=== PATIENT | female | born 1995 | race Caucasian/White ===

== ENCOUNTER 2017-12-21 19:10 | Emergency (ER) | payer MEDICAID, SELFPAY ==
[2017-12-21 19:18] VITALS: BP 133/71; PULSE 83; RESP 16; TEMP 36.7; O2SAT 99
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
[2017-12-21] MEDS: Normal Saline 1,000 ML 1000 ML IV (19:38)
[2017-12-21] MEDS: Ondansetron 4 MG/2 ML VIAL IVP (19:39)
[2017-12-21 19:40] LABS: Abs Immature Grans 0.04 k/cumm (0.0-0.09); Absolute Basophil Count 0.02 k/cumm (0.0-0.2); Absolute Eosinophil Count 0.07 k/cumm (0.0-0.7); Absolute Monocyte Count 0.77 k/cumm (0.11-0.7); Basophils % 0.2; Eosinophils % 0.6; HCT 34.3 % (36.0-46.0); HGB 11.6 g/dL (12.0-15.5); Immature Grans % 0.3; Lymphocytes % 18.3; Mean Corp. HGB Concentration 33.8 g/dL (32.0-36.0); Mean Corpuscular Hemoglobin 27.3 pg (27.0-33.0); Mean Corpuscular Volume 80.7 fL (80-95); Mean Platelet Volume 10.4 fL (8.0-11.0); Monocytes % 6.4; Neutrophils % 74.2; Platelet Count 272 x1000/uL (130-400); RBC 4.25 m/cumm (4.00-5.20); RBC Distribution Width 13.4 % (11.7-14.6); White Blood Cell Count 12.04 k/cumm (4.4-10.8)
[2017-12-21 19:46] LABS: Absolute Neutrophil Count 8.93 k/cumm (1.2-6.7)
[2017-12-21 19:59] LABS: ALT 19 U/L (12-78); AST 30 U/L (15-37); Alkaline Phosphatase 110 U/L (46-116); Anion Gap 11.6 mmol/L (3-11); BUN 5 mg/dL (7-18); Bilirubin, Total 0.2 mg/dL (0.2-1.0); CO2 22.4 mmol/L (21.0-32.0); CREATININE 0.41 mg/dL (0.55-1.02); Calcium 8.7 mg/dL (8.5-10.1); Chloride 102 mmol/L (98-107); Glucose 90 mg/dL (70-100); Magnesium 2.1 mg/dL (1.8-2.4); Potassium 3.5 mmol/L (3.5-5.1); Sodium 136 mmol/L (136-145); Total Protein 7.1 g/dL (6.4-8.2)
[2017-12-21 20:06] LABS: Bilirubin Small (Negative); Blood Negative (Negative); Clarity Cloudy; Glucose Negative (Negative); Ketones >=160 mg/dL (Negative); Leukocyte Esterase Small (Negative); Nitrite Positive (Negative); Specific Gravity >= 1.030 (1.005-1.025); Urobilinogen 0.2 EU/dL (Up TO 0.2)
[2017-12-21 20:17] LABS: Bacteria Moderate HPF (Negative); C & S Indicated? Yes; Casts Negative LPF (Negative); Crystals Negative HPF (Negative); Epithelial Cells Few HPF (Negative); Mucus Moderate (Negative); WBC 20-50 HPF (0-5)
[2017-12-21] MEDS: Nitrofurantoin Macrocrystal 50 MG CAP PO (21:19)
[2017-12-21 21:21] VITALS: BP 106/73; PULSE 72; RESP 18; TEMP 36.7; O2SAT 98
== END 2017-12-21 21:21 | disposition home or self-care (01) ==
PROVIDERS: Emergency Provider Emergency Medicine; PCP Family Medicine
DX: O23.42 Unspecified infection of urinary tract in pregnancy, second trimester (principal); O99.332 Smoking (tobacco) complicating pregnancy, second trimester; Z3A.17 17 weeks gestation of pregnancy; T58.94XA Toxic effect of carbon monoxide from unspecified source, undetermined, initial encounter
CPT/HCPCS: 80053; 87077; 96361; 96374; 99284; 81003; 81015; 83735; 85025; 87086; 87186; J2405

== ENCOUNTER 2018-02-14 19:55 | Observation (INO) | payer MEDICAID, SELFPAY ==
--- NOTE | 2018-02-14 20:32 | W.ED.GENAD ---
Discharge Plan Disposition Patient Disposition: [facility] INPATIENT Condition: Serious Discharge Details Clinical Impression: Abdominal pain affecting Admit Date/Time: 02/14/18 20:36 Admit Provider: Mickie Hernandez Attending Provider: Digna Jolley Primary Care Provider: Polo Ramírez ED Provider: Mickie Hernandez Discharge Data Discharge Date/Time-TO BE ENTERED AT DEPARTURE: 02/14/18 20:05 Medical Decision Making Patient presents today with chief complaint of abdominal pain. She is 26 weeks gestation. Reports that today she began having severe cramping that has been intermittent. States that she is also having pain that radiates into the back. Patient is not typically seen here for her obstetrical care. Patient reports that she has noted movement but not as much as she typically does. Patient came on to the Tracker and was noted to be 26 weeks gestation, immediately asked our police department secretary staff to page Dr. Jolley who promptly called me back and advised the patient should immediately go to the birthing center for evaluation. Discussed this plan with patient who is quite excited to be able to go to the birthing center. Reports this is where she would have gone if she had been at home in the care of her typical [employer]. Was replaced with the patient be admitted to birthing center for observation. HPI General Mode of arrival: ambulatory. Date/Time Provider Initiated Documentation: 02/14/18 20:04. Limitations to Documentation: no limitations. Information obtained by: patient and family. History of Present Illness 22 year old F presents to the emergency department with the chief complaint of abdominal pain, described as moderate, Quality is described as other (cramping), and is localized to the abdomen. Patient reports radiation to back. Patient started experiencing this day(s) (1) and it has been intermittent. No relieving factors improve symptom(s), No exacerbating factors reported . Patient notes no other symptoms. and other (denies vaginal discharge); denies chest pain, cough, diaphoresis, fever/chills, headaches, nausea/vomiting, rash and shortness of breath. Patient did receive the following treatments prior to arrival, none Related Data Home Medications Medication Instructions Recorded Confirmed PNV cmb#95-ferrous fumarate-FA 1 tab PO DAILY 10/08/17 11/12/17 [ Formula] nitrofurantoin macrocrystal 50 mg PO QID #28 capsule 12/21/17 Previous Rx's Medication Instructions Recorded nitrofurantoin macrocrystal 50 mg PO QID #28 capsule 12/21/17 Allergies Allergy/AdvReac Type Severity Reaction Status Date / Time cefaclor Allergy Unknown Verified 11/12/17 22:03 Cephalosporins Allergy Unknown Verified 11/12/17 22:03 fluoxetine [From Prozac] AdvReac Severe Psychosis Unverified 11/12/17 22:05 sertraline [From Zoloft] AdvReac Severe suicidal, Unverified 11/12/17 22:05 homasidal lamotrigine AdvReac Intermediate blisters Unverified 11/12/17 22:05 on throat and tongue amphetamine sulfate AdvReac Tachycardia Verified 11/12/17 22:03 [From Adderall] atomoxetine HCl AdvReac Tachycardia Verified 11/12/17 22:03 [From Strattera] dextroamphetamine AdvReac Tachycardia Verified 11/12/17 22:03 [From Adderall] hydromorphone AdvReac Verified 11/12/17 22:03 Review of Systems Constitutional Reports as per HPI, Denies chills and Denies fever(s) Cardiovascular Denies chest pain and Denies dyspnea Respiratory Denies cough and Denies dyspnea Gastrointestinal Reports as per HPI, Reports abdominal pain, Denies change in bowel habits, Reports nausea and Reports vomiting (Patient endorses morning sickness that has persisted, no change in this today) Genitourinary Reports as per HPI, Denies abnormal vaginal bleeding (denies vaginal bleeding), Denies hematuria, Denies urinary frequency, Denies difficulty voiding, Denies genital pruritis, Denies dyspareunia, Denies dysuria, Denies pelvic pain and Denies flank pain Musculoskeletal Reports as per HPI and Reports back pain (abdominal pain radiates into back) Integumentary/Breasts Denies rash [facility] Social History Smoking/Tobacco Use Status: Current every day Exam Const General: cooperative, healthy appearing, comfortable, no acute distress, well developed and well groomed Nutritional Appearance: well nourished Orientation: alert and awake Resp Effort & Inspection: normal respiratory effort, able to speak in complete sentences and no respiratory distress GI Inspection: abnormal to inspection (abdomen apperas consistent with history of gestational age) Skin General skin exam: no rashes or lesions noted Neuro General: alert and awake Cognition: normal cognition Speech: speech normal Gait: normal gait Psych Appearance: grossly normal Mental Status: mental status grossly normal Speech and Movement: speech and movement normal
--- NOTE | 2018-02-14 21:18 | ED.GENADUL_ITS ---
Discharge Plan Disposition Patient Disposition: [facility] INPATIENT Condition: Serious Discharge Details Clinical Impression: Abdominal pain affecting Admit Date/Time: 02/14/18 20:36 Admit Provider: Mickie Hernandez Attending Provider: Digna Jolley Primary Care Provider: Polo Ramírez ED Provider: Mickie Hernandez Discharge Data Discharge Date/Time-TO BE ENTERED AT DEPARTURE: 02/14/18 20:05 Medical Decision Making Patient presents today with chief complaint of abdominal pain. She is 26 weeks gestation. Reports that today she began having severe cramping that has been intermittent. States that she is also having pain that radiates into the back. Patient is not typically seen here for her obstetrical care. Patient reports that she has noted movement but not as much as she typically does. Patient came on to the Tracker and was noted to be 26 weeks gestation, immediately asked our medical office secretary staff to page Dr. Jolley who promptly called me back and advised the patient should immediately go to the birthing center for evaluation. Discussed this plan with patient who is quite excited to be able to go to the birthing center. Reports this is where she would have gone if she had been at home in the care of her typical [employer] AGENT. Was replaced with the patient be admitted to birthing center for observation. HPI General Mode of arrival: ambulatory . Date/Time Provider Initiated Documentation: 02/14/18 20:04 . Limitations to Documentation: no limitations . Information obtained by: patient and family . History of Present Illness 22 year old F presents to the emergency department with the chief complaint of abdominal pain, described as moderate, Quality is described as other ( cramping), and is localized to the abdomen. Patient reports radiation to back. Patient started experiencing this day(s) (1) and it has been intermittent. No relieving factors improve symptom(s), No exacerbating factors reported . Patient notes no other symptoms. and other (denies vaginal discharge); denies chest pain, cough, diaphoresis, fever/chills, headaches, nausea/vomiting, rash and shortness of breath. Patient did receive the following treatments prior to arrival, none Related Data Home Medications Medication Instructions Recorded Confirmed PNV cmb#95-ferrous fumarate-FA 1 tab PO DAILY 10/08/17 11/12/17 [ Formula] nitrofurantoin macrocrystal 50 mg PO QID #28 capsule 12/21/17 Previous Rx's Medication Instructions Recorded nitrofurantoin macrocrystal 50 mg PO QID #28 capsule 12/21/17 Allergies Allergy/AdvReac Type Severity Reaction Status Date / Time cefaclor Allergy Unknown Verified 11/12/17 22:03 Cephalosporins Allergy Unknown Verified 11/12/17 22:03 fluoxetine [From Prozac] AdvReac Severe Psychosis Unverified 11/12/17 22:05 sertraline [From Zoloft] AdvReac Severe suicidal, Unverified 11/12/17 22:05 homasidal lamotrigine AdvReac Intermediate blisters Unverified 11/12/17 22:05 on throat and tongue amphetamine sulfate AdvReac Tachycardia Verified 11/12/17 22:03 [From Adderall] atomoxetine HCl AdvReac Tachycardia Verified 11/12/17 22:03 [From Strattera] dextroamphetamine AdvReac Tachycardia Verified 11/12/17 22:03 [From Adderall] hydromorphone AdvReac Verified 11/12/17 22:03 Review of Systems Constitutional Reports as per HPI, Denies chills and Denies fever(s) Cardiovascular Denies chest pain and Denies dyspnea Respiratory Denies cough and Denies dyspnea Gastrointestinal Reports as per HPI, Reports abdominal pain, Denies change in bowel habits, Reports nausea and Reports vomiting (Patient endorses morning sickness that has persisted, no change in this today) Genitourinary Reports as per HPI, Denies abnormal vaginal bleeding (denies vaginal bleeding), Denies hematuria, Denies urinary frequency, Denies difficulty voiding, Denies genital pruritis, Denies dyspareunia, Denies dysuria, Denies pelvic pain and Denies flank pain Musculoskeletal Reports as per HPI and Reports back pain (abdominal pain radiates into back) Integumentary/Breasts Denies rash [facility] Social History Smoking/Tobacco Use Status: Current every day Exam Const General: cooperative, healthy appearing, comfortable, no acute distress, well developed and well groomed Nutritional Appearance: well nourished Orientation: alert and awake Resp Effort & Inspection: normal respiratory effort, able to speak in complete sentences and no respiratory distress GI Inspection: abnormal to inspection (abdomen apperas consistent with history of gestational age) Skin General skin exam: no rashes or lesions noted Neuro General: alert and awake Cognition: normal cognition Speech: speech normal Gait: normal gait Psych Appearance: grossly normal Mental Status: mental status grossly normal Speech and Movement: speech and movement normal
[2018-02-14 21:57] LABS: Bilirubin Negative (Negative); Blood Negative (Negative); Clarity Clear; Glucose Negative (Negative); Ketones Trace mg/dL (Negative); Leukocyte Esterase Negative (Negative); Nitrite Negative (Negative); Specific Gravity 1.025 (1.005-1.025); Urobilinogen 0.2 EU/dL (Up TO 0.2)
[2018-02-14 22:07] LABS: Bacteria Few HPF (Negative); Casts Negative LPF (Negative); Crystals Negative HPF (Negative); Epithelial Cells Many HPF (Negative); Mucus Moderate (Negative); RBC Negative (0-2)
[2018-02-14 22:08] LABS: C & S Indicated? No/Sq. Contamination
[2018-02-14 22:15] LABS: Fetal Fibronectin Positive (Negative)
== END 2018-02-14 22:00 | disposition home or self-care (01) ==
LOC: ER 20:09 → OBS 21:28
PROVIDERS: Admitting Provider Obstetrics & Gynecology Gynecology; Emergency Provider Physician Assistant; PCP Family Medicine; Visit Provider Obstetrics & Gynecology Gynecology
DX: O60.02 Preterm labor without delivery, second trimester (principal); Z3A.26 26 weeks gestation of pregnancy; Z87.440 Personal history of urinary (tract) infections
CPT/HCPCS: 99285; 81003; 81015; 82731; 99283; G0378

== ENCOUNTER 2018-03-18 07:44 | Outpatient (RCR) | payer MEDICAID, SELFPAY ==
--- NOTE | 2018-03-18 07:45 | COCO.CNN ---
Primary Reason for Visit Housing (housing support) Referral to Care Coordination Referral to Care Coordination: Yes Type: Other ([facility]) Referral to Services: Yes Care Plan - Plan of Care Assessment/Background: Pavel came into the office because she is and homeless. Currently she has no income. She does have a place to stay temporarly. I explaned to her the process of how housing works in our community. When she is able to sign up for reach up she should. I also explained her the agencies who could help her job search now. I referred her to [facility] to get on the homeless list for housing so when she gets income she can apply to [facility] and her status will already be homeless in the state system. Plan of Care: if she needs any more support [facility] Self Management Plan Complete?: Yes (action plan) At this Visit: [employer] (done)
--- NOTE | 2018-03-18 07:56 | PDOC.CNN_ITS ---
Primary Reason for Visit Housing (housing support) Referral to Care Coordination Referral to Care Coordination: Yes Type: Other ([facility] [place] Referral to Services: Yes Care Plan - Plan of Care Assessment/Background: Pavel came into the office because she is and homeless. Currently she has no income. She does have a place to stay temporarly. I explaned to her the process of how housing works in our community. When she is able to sign up for reach up she should. I also explained her the agencies who could help her job search now. I referred her to [facility] to get on the homeless list for housing so when she gets income she can apply to [facility] and her status will already be homeless in the state system. Plan of Care: if she needs any more support [facility] Self Management Plan Complete?: Yes (action plan) At this Visit: [employer] (done)
== END 2018-04-15 23:59 | disposition home or self-care (01) ==
LOC: COCO 07:44
PROVIDERS: PCP Family Medicine; Visit Provider Family Medicine
DX: R69 Illness, unspecified (principal)

== ENCOUNTER 2018-03-23 20:09 | Observation (INO) | payer MEDICAID, SELFPAY ==
[2018-03-23 20:13] VITALS: BP 122/85; PULSE 83; RESP 22; TEMP 37; O2SAT 96
--- NOTE | 2018-03-23 20:35 | W.ED.GENAD ---
Discharge Plan Disposition Patient Disposition: [facility] INPATIENT Condition: Stable Discharge Details Chief Complaint: [facility] Clinical Impression: Third trimester at less than 36 weeks Reason For Visit: THIRD TRIMESTER WITH CONTRACTIONS Admit Date/Time: 03/23/18 20:38 Admit Provider: Digna Jolley Attending Provider: Digna Jolley Primary Care Provider: Polo Ramírez ED Provider: Michel Suarez Medical Decision Making heart tones found to be 140-150. Patient's vitals are normal. Patient discussed with OB on-call. Patient accepted for admission to labor and delivery for monitoring. Urinalysis sent from here. Patient taken to L&D by nurse. HPI General Mode of arrival: ambulatory. Date/Time Provider Initiated Documentation: 03/23/18 20:35. Limitations to Documentation: no limitations. Information obtained by: patient. HPI Narrative: Patient is a female who is at 30 weeks and 5 days presenting with increased contractions since 5 AM this morning. She has had decreased movement today. She has not had any bleeding or discharge. She is otherwise been well with no fever, vomiting, urinary symptoms. She is not followed at this hospital but reports that she has had care and up until now everything has been fine. She talked to her OB in [place] and they referred her to the closest hospital with labor and delivery capabilities. Related Data Home Medications Medication Instructions Recorded Confirmed acetaminophen 650 mg PO Q6H PRN 03/23/18 03/23/18 pediatric multivitamin 1 tab PO DAILY 03/23/18 03/23/18 [Flintstones Multivitamin] Allergies Allergy/AdvReac Type Severity Reaction Status Date / Time cefaclor Allergy Unknown Verified 03/23/18 20:30 Cephalosporins Allergy Unknown Verified 03/23/18 20:30 fluoxetine [From Prozac] AdvReac Severe Psychosis Unverified 03/23/18 20:30 sertraline [From Zoloft] AdvReac Severe suicidal, Unverified 03/23/18 20:30 homasidal lamotrigine AdvReac Intermediate blisters Unverified 03/23/18 20:30 on throat and tongue amphetamine sulfate AdvReac Tachycardia Verified 03/23/18 20:30 [From Adderall] atomoxetine HCl AdvReac Tachycardia Verified 03/23/18 20:30 [From Strattera] dextroamphetamine AdvReac Tachycardia Verified 03/23/18 20:30 [From Adderall] hydromorphone AdvReac Verified 03/23/18 20:30 General Stated Complaint: [facility] SHARRI: 2 Review of Systems Constitutional Denies chills, Denies fever(s), Denies headache(s) and Denies weakness ENT Denies headache(s) and Denies sore throat Cardiovascular Denies chest pain, Denies syncope, Denies palpitations and Denies dyspnea Respiratory Denies cough and Denies dyspnea Gastrointestinal Denies abdominal pain, Denies diarrhea, Denies nausea and Denies vomiting Genitourinary Denies abnormal vaginal bleeding, Denies hematuria, Denies dysuria, Denies flank pain and Reports other (contractions) Musculoskeletal Denies back pain, Denies myalgias, Denies arthralgias and Denies numbness Integumentary/Breasts Denies rash Neurologic Denies syncope, Denies headache(s), Denies focal weakness, Denies numbness and Denies weakness Endocrine Denies palpitations [facility] Social History Smoking/Tobacco Use Status: Current every day Exam Const General: cooperative and no acute distress Orientation: alert and oriented x3 HENMT Head: normocephalic and atraumatic Neck Neck: normal visual inspection, trachea midline and supple GI Other: Gravid abdomen with uterus measuring 5-6 cm above the umbilicus. Uterus mildly tender throughout. Other: Vaginal exam deferred Neuro General: alert, oriented x3, no focal motor deficits and CN's II-XI intact bilaterally Course Vital Signs Temperature 98.6 F 03/23/18 20:13 Pulse 83 03/23/18 20:13 Respiratory Rate 22 03/23/18 20:13 Blood Pressure 122/85 03/23/18 20:13 Pulse Oximetry 96 03/23/18 20:13 Temperature 98.6 F 03/23/18 20:13 Temperature Source Skin 03/23/18 20:13 Pulse 83 03/23/18 20:13 Respiratory Rate 22 03/23/18 20:13 Respiratory Effort Non-Labored 03/23/18 20:26 Blood Pressure 122/85 03/23/18 20:13 Blood Pressure Position Sitting 03/23/18 20:13 Pulse Oximetry 96 03/23/18 20:13 Oxygen Delivery Method Room Air 03/23/18 20:13 Oxygen Flow Rate 0 03/23/18 20:13 Pain Level 6 03/23/18 20:28
--- NOTE | 2018-03-23 20:38 | ED.GENADUL_ITS ---
Discharge Plan Disposition Patient Disposition: [facility] INPATIENT Condition: Stable Discharge Details Chief Complaint: ASSISTANT REAL ESTATE MANAGER Clinical Impression: Third trimester at less than 36 weeks Reason For Visit: THIRD TRIMESTER WITH CONTRACTIONS Admit Date/Time: 03/23/18 20:38 Admit Provider: Digna Jolley Attending Provider: Digna Jolley Primary Care Provider: Polo Ramírez ED Provider: Michel Suarez Medical Decision Making heart tones found to be 140-150. Patient's vitals are normal. Patient discussed with OB on-call. Patient accepted for admission to labor and delivery for monitoring. Urinalysis sent from here. Patient taken to L&D by nurse. HPI General Mode of arrival: ambulatory . Date/Time Provider Initiated Documentation: 03/23/18 20:35 . Limitations to Documentation: no limitations . Information obtained by: patient . HPI Narrative: Patient is a female who is at 30 weeks and 5 days presenting with increased contractions since 5 AM this morning. She has had decreased movement today. She has not had any bleeding or discharge. She is otherwise been well with no fever, vomiting, urinary symptoms. She is not followed at this hospital but reports that she has had care and up until now everything has been fine. She talked to her OB in [place] and they referred her to the closest hospital with labor and delivery capabilities. Related Data Home Medications Medication Instructions Recorded Confirmed acetaminophen 650 mg PO Q6H PRN 03/23/18 03/23/18 pediatric multivitamin 1 tab PO DAILY 03/23/18 03/23/18 [Flintstones Multivitamin] Allergies Allergy/AdvReac Type Severity Reaction Status Date / Time cefaclor Allergy Unknown Verified 03/23/18 20:30 Cephalosporins Allergy Unknown Verified 03/23/18 20:30 fluoxetine [From Prozac] AdvReac Severe Psychosis Unverified 03/23/18 20:30 sertraline [From Zoloft] AdvReac Severe suicidal, Unverified 03/23/18 20:30 homasidal lamotrigine AdvReac Intermediate blisters Unverified 03/23/18 20:30 on throat and tongue amphetamine sulfate AdvReac Tachycardia Verified 03/23/18 20:30 [From Adderall] atomoxetine HCl AdvReac Tachycardia Verified 03/23/18 20:30 [From Strattera] dextroamphetamine AdvReac Tachycardia Verified 03/23/18 20:30 [From Adderall] hydromorphone AdvReac Verified 03/23/18 20:30 General Stated Complaint: ASSISTANT REAL ESTATE MANAGER SHARRI: 2 Review of Systems Constitutional Denies chills, Denies fever(s), Denies headache(s) and Denies weakness ENT Denies headache(s) and Denies sore throat Cardiovascular Denies chest pain, Denies syncope, Denies palpitations and Denies dyspnea Respiratory Denies cough and Denies dyspnea Gastrointestinal Denies abdominal pain, Denies diarrhea, Denies nausea and Denies vomiting Genitourinary Denies abnormal vaginal bleeding, Denies hematuria, Denies dysuria, Denies flank pain and Reports other (contractions) Musculoskeletal Denies back pain, Denies myalgias, Denies arthralgias and Denies numbness Integumentary/Breasts Denies rash Neurologic Denies syncope, Denies headache(s), Denies focal weakness, Denies numbness and Denies weakness Endocrine Denies palpitations [facility] Social History Smoking/Tobacco Use Status: Current every day Exam Const General: cooperative and no acute distress Orientation: alert and oriented x3 HENMT Head: normocephalic and atraumatic Neck Neck: normal visual inspection, trachea midline and supple GI Other: Gravid abdomen with uterus measuring 5-6 cm above the umbilicus. Uterus mildly tender throughout. Other: Vaginal exam deferred Neuro General: alert, oriented x3, no focal motor deficits and CN's II-XI intact bilaterally Course Vital Signs Temperature 98.6 F 03/23/18 20:13 Pulse 83 03/23/18 20:13 Respiratory Rate 22 03/23/18 20:13 Blood Pressure 122/85 03/23/18 20:13 Pulse Oximetry 96 03/23/18 20:13 Temperature 98.6 F 03/23/18 20:13 Temperature Source Skin 03/23/18 20:13 Pulse 83 03/23/18 20:13 Respiratory Rate 22 03/23/18 20:13 Respiratory Effort Non-Labored 03/23/18 20:26 Blood Pressure 122/85 03/23/18 20:13 Blood Pressure Position Sitting 03/23/18 20:13 Pulse Oximetry 96 03/23/18 20:13 Oxygen Delivery Method Room Air 03/23/18 20:13 Oxygen Flow Rate 0 03/23/18 20:13 Pain Level 6 03/23/18 20:28
[2018-03-23 21:34] LABS: Bilirubin Negative (Negative); Blood Trace-intact (Negative); Clarity Cloudy; Glucose Negative (Negative); Ketones Negative (Negative); Leukocyte Esterase Trace (Negative); Nitrite Negative (Negative); Urobilinogen 0.2 EU/dL (Up TO 0.2)
[2018-03-23 21:39] LABS: Bacteria Many HPF (Negative); C & S Indicated? No/Sq. Contamination; Casts Negative LPF (Negative); Crystals Many Amorphous HPF (Negative); Epithelial Cells Many HPF (Negative); Mucus Moderate (Negative); RBC Negative (0-2)
[2018-03-23] MEDS: Terbutaline 1 MG/ML VIAL 0.25 MG SC (22:21)
[2018-03-23] MEDS: Lactated Ringers 500 ML 1000 ML IV (22:23)
[2018-03-23] MEDS: Normal Saline Flush 10 ML SYR (22:24)
[2018-03-23] MEDS: Acetaminophen 325 MG TAB 650 MG PO (23:27)
== END 2018-03-23 23:50 | disposition home or self-care (01) ==
LOC: ER 20:46 → OBS 20:50
PROVIDERS: Admitting Provider Obstetrics & Gynecology Gynecology; Emergency Provider Emergency Medicine; PCP Family Medicine; Visit Provider Obstetrics & Gynecology Gynecology
DX: O60.03 Preterm labor without delivery, third trimester (principal); Z3A.30 30 weeks gestation of pregnancy
CPT/HCPCS: 96360; 96361; 96372; 99285; 81003; 81015; 99283; G0378

== ENCOUNTER 2018-03-24 12:00 | Observation (INO) | payer MEDICAID, SELFPAY ==
[2018-03-24] MEDS: Lactated Ringers 1,000 ML 999 ML IV (13:15)
[2018-03-24] MEDS: Normal Saline Flush 10 ML SYR IVP (13:15)
--- NOTE | 2018-03-24 13:52 | DI.US_ITS ---
SYMPTOMS/DIAGNOSIS: CONTRACTIONS OB ULTRASOUND: Many abnormalities cannot be diagnosed. A normal exam does not exclude a congenital anomaly. Radiology No. [id number] LMP: Exam Date: 03/24/18 [facility] wks days on EDC ([facility]) Confirmed: HISTORY: ---- PREDICTED GESTATIONAL AGE NUMBER 30+6 weeks with a range of 29+6 weeks to 31+6 weeks. 1 Determined by___1STUS___LMP___HISTORY PLACENTA PRESENTATION Grade II Cephalic___ Anterior___Posterior_X__ Breech__X__ Right Left___X____ Transverse(head right___ Fundal___Low-lying___Previa___ Transverse(head left___ Varying BIOMETRY AMNIOTIC FLUID BPD: 79 mm 31+4 weeks Normal HC: 288 mm 31+5 weeks Oligo Polyhydramnios AC: 274 mm 31+3 weeks FL: 60 mm 31+1 weeks AMNIOTIC FLUID INDEX >26 WK CRL: mm weeks Cisterna Magna: mm CI: 84 RUQ: LUQ Cerebellum: cm EFW: 1754 grams Percentile: 56th RLQ: LLQ Total: 18.1 cm Composite AGE= 31+3 wks EDC by US: 05/23/18 BIOPHYSICAL PROFILE ANATOMY IDENTIFIED SCORE 0/2 Heart: 4-Chamber_X__Rate:BPM 150 LVOT: RVOT: Amniotic Fluid(>2cms)____ Stomach:__X Kidneys: Respirations (>30 secs) Bladder:___X Post. Fossa: Body Flex/Extension 3-vessel cord:__X Ventricles: cord insertion: Lips:____ Extremity Flex/Extension spinal morphology: Nose: Total Score= Palate: NS=not seen
[2018-03-24 13:56] LABS: HCT 26.7 % (36.0-46.0); HGB 8.9 g/dL (12.0-15.5); Mean Corp. HGB Concentration 33.3 g/dL (32.0-36.0); Mean Corpuscular Hemoglobin 28.2 pg (27.0-33.0); Mean Corpuscular Volume 84.5 fL (80-95); Mean Platelet Volume 9.9 fL (8.0-11.0); Platelet Count 232 x1000/uL (130-400); RBC 3.16 m/cumm (4.00-5.20); RBC Distribution Width 14.1 % (11.7-14.6); White Blood Cell Count 14.67 k/cumm (4.4-10.8)
[2018-03-24 14:24] LABS: ROM Plus Positive
[2018-03-24] MEDS: Terbutaline 1 MG/ML VIAL 0.25 MG SC (15:12)
[2018-03-24] MEDS: Lactated Ringers 1,000 ML 150 ML IV (16:32)
[2018-03-24 17:03] LABS: Bilirubin Small (Negative); Blood Negative (Negative); Clarity Clear; Glucose Negative (Negative); Ketones Trace mg/dL (Negative); Leukocyte Esterase Negative (Negative); Nitrite Positive (Negative); Specific Gravity 1.025 (1.005-1.025)
[2018-03-24 17:38] LABS: Bacteria Many HPF (Negative); Crystals Negative HPF (Negative); Epithelial Cells Moderate HPF (Negative); Other Cells Few Renal (Negative); RBC Negative (0-2)
[2018-03-24 17:39] LABS: C & S Indicated? No/Sq. Contamination; Casts Negative LPF (Negative); Mucus Trace (Negative)
[2018-03-24] MEDS: AMPICILLIN SODIUM 2 GM in Normal Saline 100 ML IVPB (18:00)
[2018-03-24] MEDS: Betamet Acet/Betamet Na Ph Inj. 30 MG/5 ML 12 MG IM (18:01)
[2018-03-24] MEDS: MAGNESIUM SULFATE 20 GM/500 ML BAG IV (18:30)
[2018-03-24] MEDS: Azithromycin 250 MG TAB 1000 MG PO (18:47)
== END 2018-03-24 19:30 | disposition short-term general hospital (02) ==
LOC: OBS 03-30 12:31
PROVIDERS: Admitting Provider Obstetrics & Gynecology; PCP Family Medicine; Visit Provider Obstetrics & Gynecology
DX: O42.013 Preterm premature rupture of membranes, onset of labor within 24 hours of rupture, third trimester (principal); Z3A.30 30 weeks gestation of pregnancy; O46.93 Antepartum hemorrhage, unspecified, third trimester; O23.93 Unspecified genitourinary tract infection in pregnancy, third trimester; B96.20 Unspecified Escherichia coli [E. coli] as the cause of diseases classified elsewhere; O32.1XX0 Maternal care for breech presentation, not applicable or unspecified; Z16.29 Resistance to other single specified antibiotic
CPT/HCPCS: 36415; 76816; 84112; 85027; 87077; 96360; 96361; 96365; 96372; 81003; 81015; 87086; 87186; G0378; J0290; J0702; J3475

== ENCOUNTER 2018-09-02 21:05 | Emergency (ER) | payer MEDICAID, SELFPAY ==
[2018-09-02 21:09] VITALS: BP 143/85; PULSE 80; RESP 16; TEMP 36.6; O2SAT 97
--- NOTE | 2018-09-02 21:36 | ED.GENADUL_ITS ---
Discharge Plan Disposition Patient Disposition: HOME Condition: Stable Discharge Details Chief Complaint: DentalOral Clinical Impression: Pain, dental Primary Care Provider: Polo Ramírez ED Provider: Juan Duval Home Meds and New Rx's Prescriptions: No Action acetaminophen 325 mg Tablet 650 mg PO Q6H PRNRF: 0 pediatric multivitamin [Flintstones Multivitamin] Tablet,Chewable 1 tab PO DAILY RF: 0 acetaminophen-codeine [Tylenol-Codeine #3] 300-30 mg Tablet 1 tab PO PRNRF: 0 Discharge Instructions Instructions: Toothache (ED) Additional Instructions: Continue to use [id number] acetaminophen 650 mg along with 600 mg of ibuprofen every 6 hours as needed for pain control. Please return to the emergency department for any new or significant worsening of symptoms otherwise follow-up with your dental provider for reassessment if not improving by Wednesday. Referrals: Primary Care Provider [Outside] (Follow-up with your dental provider on Wednesday if not improving ) Discharge Data Discharge Date/Time-TO BE ENTERED AT DEPARTURE: 09/02/18 22:00 Medical Decision Making Patient is a 22-year-old female with recent dental extraction coming to the emergency department for chief complaint of dental pain. Patient states that her teeth removed 3 days ago and she is having continued pain swelling and noted some bruising to the area. Patient denies any fever chills, difficulty swallowing or breathing, any odorous drainage. Was able to visualize the area of dental extractions there does not appear to be any evidence of dry socket with suture material in place and clot formation. There are no signs of secondary infection and patient is otherwise stable. Patient was encouraged to continue to use ibuprofen acetaminophen, apply ice packs to area swelling and follow-up with dental provider or return for any new or worsening symptoms. After discussion of diagnosis and plan of care patient has no further needs, questions, or concerns and states clear understanding to return to the emergency department for any worsening symptoms. HPI General Mode of arrival: ambulatory . Date/Time Provider Initiated Documentation: 09/02/18 21:12 . Limitations to Documentation: no limitations . Information obtained by: patient . History of Present Illness 22 year old F presents to the emergency department with the chief complaint of Dental pain, described as severe, with intensity rated at 8. Quality is described as sharp, and is localized to the mouth. Patient started experiencing this day(s) (3) and it has been constant. No relieving factors improve symptom(s), Patient notes no other symptoms.. Patient did receive the following treatments prior to arrival, NSAID Related Data Home Medications Medication Instructions Recorded Confirmed acetaminophen 650 mg PO Q6H PRN 03/23/18 03/23/18 pediatric multivitamin 1 tab PO DAILY 03/23/18 03/23/18 [Flintstones Multivitamin] acetaminophen-codeine 1 tab PO PRN 09/02/18 [Tylenol-Codeine #3] Allergies Allergy/AdvReac Type Severity Reaction Status Date / Time cefaclor Allergy Unknown Verified 09/02/18 21:14 Cephalosporins Allergy Unknown Verified 09/02/18 21:14 fluoxetine [From Prozac] AdvReac Severe Psychosis Unverified 09/02/18 21:14 sertraline [From Zoloft] AdvReac Severe suicidal, Unverified 09/02/18 21:14 homasidal lamotrigine AdvReac Intermediate blisters Unverified 09/02/18 21:14 on throat and tongue amphetamine sulfate AdvReac Tachycardia Verified 09/02/18 21:14 [From Adderall] atomoxetine HCl AdvReac Tachycardia Verified 09/02/18 21:14 [From Strattera] dextroamphetamine AdvReac Tachycardia Verified 09/02/18 21:14 [From Adderall] hydromorphone AdvReac Verified 09/02/18 21:14 General Stated Complaint: DentalOral SHARRI: 5 Review of Systems Constitutional Denies chills and Denies fever(s) ENT Reports as per HPI, Denies change in voice, Reports dental pain, Denies dysphagia, Denies throat swelling and Denies tongue swelling Respiratory Denies stridor and Denies wheezing Gastrointestinal Denies dysphagia Integumentary/Breasts Denies rash Allergic/Immunologic Denies throat swelling, Denies tongue swelling and Denies wheezing [facility] Surgical History History of carpal tunnel surgery of right wrist (Acute) History of carpal tunnel surgery of right wrist (Acute) Social History Smoking/Tobacco Use Status: Former Tobacco Use Quit Date: 03/17/18 Alcohol Intake: never Drug use: Never Do you feel safe at home: Yes Do you feel safe in your relationship?: Yes Exam Const General: cooperative Orientation: alert, awake and oriented x3 Limitations: mental status not altered [facility] Head: normal to inspection, normocephalic and atraumatic Ears: hearing grossly normal bilaterally, normal mastoids bilaterally and no periauricular adenopathy General nose exam: external nose normal Mouth: oropharynx normal, no drooling, no muffled voice, normal tongue and no trismus Teeth and gingiva: other (removal of teeth 17, [address]) Throat: posterior oropharynx normal, tonsils normal and uvula midline Eyes General: appearance normal, both eyes and all related structures Pupils: PERRL Neck Neck: normal visual inspection, full ROM, no lymphadenopathy, no meningeal signs, trachea midline, supple, no anterior neck swelling and no midline deformity Resp Effort & Inspection: normal respiratory effort and able to speak in complete sentences Course Vital Signs Temperature 36.6 C 09/02/18 21:09 Pulse 80 09/02/18 21:09 Respiratory Rate 16 09/02/18 21:09 Blood Pressure 143/85 H 09/02/18 21:09 Pulse Oximetry 97 09/02/18 21:09 Temperature 36.6 C 09/02/18 21:09 Temperature Source Skin 09/02/18 21:09 Pulse 80 09/02/18 21:09 Respiratory Rate 16 09/02/18 21:09 Respiratory Effort Non-Labored 09/02/18 21:15 Blood Pressure 143/85 H 09/02/18 21:09 Pulse Oximetry 97 09/02/18 21:09 Pain Level 8 09/02/18 21:09
[2018-09-02] MEDS: Ibuprofen 600 MG TAB PO (21:45)
[2018-09-02] MEDS: Acetaminophen 500 MG TAB 1000 MG PO (21:45)
== END 2018-09-02 22:00 | disposition home or self-care (01) ==
PROVIDERS: Emergency Provider Nurse Practitioner Family; PCP Family Medicine
DX: K08.89 Other specified disorders of teeth and supporting structures (principal)
CPT/HCPCS: 99282

== ENCOUNTER 2019-01-03 16:48 | Outpatient (REF) | payer MEDICAID, SELFPAY ==
--- NOTE | 2019-01-03 16:40 | PAPFT_PTH ---
PATIENT: Pavel Núñez LOC: [facility] U#:[id number] AGE/SX: 23/F ROOM: RE01/03/[address]: Yasmany Graves RN : 1995 BED: DIS: 01/03/2019 SPEC #: [id number] RECD: 01/03/19 17:46 STATUS: JAE RELacy #: [id number] CRIS: 01/03/19 16:[address]: Yasmany Graves DEPT: [facility] Cytology RECD BY: Sandra Woods ENTERED: 01/03/19 17:46 SP TYPE: PAPFT OTHR DR: Polo Ramírez Tissues: 1 - CX/ENDOCX FOR PAP SMEARS Procedures: PAP THIN PREP/UVM Screening HPV DNA PROBE Comments: [id number]
[2019-01-03 18:13] LABS: *AMPHETAMINES SCREEN URINE Negative (Negative); *BARBITURATES SCREEN URINE Negative (Negative); *BENZODIAZEPINES SCREEN URINE Negative (Negative); Cannabinoids THC Negative (Negative); Cocaine Screen,Urine Negative (Negative); METHADONE URINE SCREEN Negative (Negative); OPIATES URINE SCREEN Negative (Negative)
[2019-01-03 18:20] LABS: Tricyclic Antidepressants Negative (Negative)
[2019-01-05 15:27] LABS: Chlamydia Result Negative; GC Result Negative; Specimen Description CERVIX
[2019-01-08 12:30] LABS: Buprenorphine Negative; Norbuprenorphine Negative
== END 2019-01-03 17:08 ==
LOC: LBN 16:48
PROVIDERS: PCP Family Medicine; Visit Provider Advanced Practice Midwife
DX: Z34.91 Encounter for supervision of normal pregnancy, unspecified, first trimester (principal); Z11.3 Encounter for screening for infections with a predominantly sexual mode of transmission; Z12.4 Encounter for screening for malignant neoplasm of cervix
CPT/HCPCS: 80307; 87491; 87591; 88142; 87086; 87480; 87510; 87624; 87660

== ENCOUNTER 2019-01-06 10:45 | Outpatient (CLI) | payer MEDICAID, SELFPAY ==
[2019-01-06 13:00] LABS: Abs Immature Grans 0.03 k/cumm (0.0-0.09); Absolute Basophil Count 0.01 k/cumm (0.0-0.2); Absolute Eosinophil Count 0.02 k/cumm (0.0-0.7); Absolute Lymphocyte Count 1.62 k/cumm (1.2-3.4); Absolute Monocyte Count 0.52 k/cumm (0.11-0.7); Basophils % 0.1; Eosinophils % 0.3; HCT 35.2 % (36.0-46.0); HGB 11.7 g/dL (12.0-15.5); Immature Grans % 0.4; Lymphocytes % 20.3; Mean Corp. HGB Concentration 33.2 g/dL (32.0-36.0); Mean Corpuscular Hemoglobin 26.4 pg (27.0-33.0); Mean Corpuscular Volume 79.5 fL (80-95); Mean Platelet Volume 9.9 fL (8.0-11.0); Monocytes % 6.5; Neutrophils % 72.4; Platelet Count 280 x1000/uL (130-400); RBC 4.43 m/cumm (4.00-5.20); RBC Distribution Width 13.6 % (11.7-14.6)
[2019-01-06 13:16] LABS: Glucose,1 Hr (Glucola) 160 mg/dL (80-140)
[2019-01-06 13:50] LABS: ALT 29 U/L (14-59); AST 22 U/L (15-37); Albumin 3.6 g/dL (3.4-5.0); Alkaline Phosphatase 83 U/L (46-116); Anion Gap 11.5 mmol/L (3-11); BUN 10 mg/dL (7-18); Bilirubin, Total 0.3 mg/dL (0.2-1.0); CO2 24.5 mmol/L (21.0-32.0); CREATININE 0.63 mg/dL (0.55-1.02); Calcium 8.7 mg/dL (8.5-10.1); Chloride 102 mmol/L (98-107); Glucose 157 mg/dL (70-100); Potassium 3.7 mmol/L (3.5-5.1); Sodium 138 mmol/L (136-145); TSH (W/Ref FT4) 1.08 uIU/mL (0.36-3.74); Total Protein 7.2 g/dL (6.4-8.2); Uric Acid 3.1 mg/dL (2.6-6.0)
[2019-01-07 11:05] LABS: HIV-1/2 Ag & Ab Screen Negative (NEGAT)
[2019-01-09 11:08] LABS: Hepatitis C Ab w Rflx HCV PCR Negative (NEGAT)
[2019-01-09 11:18] LABS: Hepatitis B Surface Ag Negative (NEGAT)
[2019-01-09 11:55] LABS: Varicella IgG Antibody Positive
[2019-01-09 12:02] LABS: Syphilis Serology (RPR) Negative (Negative)
[2019-01-09 12:22] LABS: Rubella IgG Ab (UVM) Positive
== END 2019-01-06 11:05 ==
PROVIDERS: PCP Family Medicine; Visit Provider Advanced Practice Midwife
DX: Z34.91 Encounter for supervision of normal pregnancy, unspecified, first trimester; Z11.4 Encounter for screening for human immunodeficiency virus [HIV]; Z11.59 Encounter for screening for other viral diseases; Z01.84 Encounter for antibody response examination
CPT/HCPCS: 36415; 80053; 80055; 82950; 85027; 86787; 86803; 86850; 86900; 86901; 87340; 87389; 84443; 84550; 86592; 86762

== ENCOUNTER 2019-02-15 09:56 | Outpatient (CLI) | payer MEDICAID, SELFPAY ==
[2019-02-15 11:23] LABS: Iron 50 ug/dL (50-175); Total Iron Binding Capacity 437 ug/dL (250-450)
[2019-02-15 11:36] LABS: Ferritin 11 ng/mL (8-388)
[2019-02-15 12:23] LABS: Glucose 1 Hour 221 mg/dL
[2019-02-15 14:22] LABS: Glucose 3 Hour 149 mg/dL
== END 2019-02-15 10:16 ==
PROVIDERS: PCP Family Medicine; Visit Provider Advanced Practice Midwife
DX: Z34.91 Encounter for supervision of normal pregnancy, unspecified, first trimester (principal)
CPT/HCPCS: 36415; 82728; 82951; 83540; 83550

== ENCOUNTER 2019-02-21 12:34 | Outpatient (CLI) | payer MEDICAID, SELFPAY ==
[2019-02-21 12:55] LABS: Kit/Specimen SENT
== END 2019-02-21 12:54 ==
PROVIDERS: Visit Provider Advanced Practice Midwife
DX: Z34.91 Encounter for supervision of normal pregnancy, unspecified, first trimester (principal); Z36.89 Encounter for other specified antenatal screening

== ENCOUNTER 2019-03-07 01:37 | Outpatient (CLI) | payer MEDICAID, SELFPAY ==
--- NOTE | 2019-03-07 14:01 | DI.US_ITS ---
EXAM: US OB 2-3 TRIMESTER CLINICAL HISTORY: , SURVEY TECHNIQUE: Ultrasound performed using standard protocol. COMPARISON: No exams were available for comparison FINDINGS: The fetus was in variable position during the exam. The placenta is anterior. The biometric measure ments correspond to 18 weeks 3 days, within the expected range. The amniotic fluid volume appears vi sually normal. No abnormalities are seen. IMPRESSION: survey is within normal limits.
== END 2019-03-07 01:57 ==
PROVIDERS: Visit Provider Obstetrics & Gynecology
DX: Z34.92 Encounter for supervision of normal pregnancy, unspecified, second trimester (principal); O24.419 Gestational diabetes mellitus in pregnancy, unspecified control; Z71.3 Dietary counseling and surveillance
CPT/HCPCS: 97802; 76805

== ENCOUNTER 2019-03-07 02:21 | Outpatient (CLI) | payer MEDICAID, SELFPAY ==
--- NOTE | 2019-03-07 13:38 | DIABASSESS_ITS ---
DESCRIPTION/ASSESSMENT: Pavel presents for nutrition consult to manage gestational diabetes at ~18 weeks with the father of the baby. She has distant family history of diabetes. States she had gestational diabetes with her 4 year old who Pavel states was overdue and weighing 5 pounds. She has started testing her blood sugars already but did not bring glucometer but states blood sugars are all 'good'. States fasting blood sugars in the low 100s. Pavel admits to eating badly a lot of sweets and junk food including soda. She is unable to do a 24 hour diet recall. She does take flinstone vitamins and denies nausea/vomiting. Reports no regular physical activity. INTERVENTION: Pavel reports successfully monitoring blood sugars and she is encouraged to bring glucometer to her next appointment. She is given log sheets for food and blood sugars and is instructed on timing of monitoring. Reviewed diabetes food guide with focus on healthy carbohydrate sources, portions, distribution. Encouraged physical activity of a short walk as a way to manage blood sugars. PLAN: Pavel will document food and blood sugars and bring her food log to her next appointment. She will attempt to decrease sugar intake including snack foods and soda
== END 2019-03-07 02:41 ==
PROVIDERS: Visit Provider Dietitian, Registered
DX: O24.419 Gestational diabetes mellitus in pregnancy, unspecified control (principal); Z71.3 Dietary counseling and surveillance
CPT/HCPCS: 97802

== ENCOUNTER 2019-04-11 00:43 | Outpatient (CLI) | payer MEDICAID, SELFPAY ==
--- NOTE | 2019-04-11 15:50 | DI.US_ITS ---
EXAM: US OB RONDA WEIGHT CLINICAL HISTORY: GDM Z34.90 SUPERVISION NORMAL TECHNIQUE: Ultrasound performed using standard protocol. COMPARISON: US OB 2-3 TRIMESTER from 03/07/2019 FINDINGS: Ob ultrasound was performed utilizing limited 2nd trimester protocol. biometry is consistent wi th gestational age of 23 weeks 3 days and EDC of 08/05/2019. Placenta is anterior with no evidence o f placenta previa. Amniotic fluid index is 13 and visually there is a normal quantity of amniotic fl uid. Estimated weight is 607 grams which is at the 28th percentile for predicted gestational age. IMPRESSION:
== END 2019-04-11 01:03 ==
PROVIDERS: Visit Provider Obstetrics & Gynecology
DX: O24.419 Gestational diabetes mellitus in pregnancy, unspecified control (principal); Z3A.23 23 weeks gestation of pregnancy
CPT/HCPCS: 76816

== ENCOUNTER 2019-04-16 21:43 | Observation (INO) | payer MEDICAID, SELFPAY ==
[2019-04-16 22:53] LABS: Bilirubin Negative (Negative); Blood Negative (Negative); Clarity Clear (Clear); Glucose Negative (Negative); Ketones Trace mg/dL (Negative); Leukocyte Esterase Negative (Negative); Nitrite Negative (Negative); Specific Gravity >= 1.030 (1.005-1.025); Urobilinogen 0.2 EU/dL (Up TO 0.2)
== END 2019-04-16 23:26 | disposition home or self-care (01) ==
PROVIDERS: Admitting Provider Obstetrics & Gynecology; Visit Provider Obstetrics & Gynecology
DX: O60.02 Preterm labor without delivery, second trimester (principal); Z3A.24 24 weeks gestation of pregnancy
CPT/HCPCS: 81003; G0378

== ENCOUNTER 2019-05-01 23:19 | Observation (INO) | payer MEDICAID, SELFPAY | END 2019-05-02 00:13 | disposition home or self-care (01) | PROVIDERS: Admitting Provider Obstetrics & Gynecology; Visit Provider Obstetrics & Gynecology | DX: O60.02 Preterm labor without delivery, second trimester (principal); Z3A.26 26 weeks gestation of pregnancy | CPT/HCPCS: G0378 ==

== ENCOUNTER 2019-05-02 02:24 | Outpatient (CLI) | payer MEDICAID, SELFPAY ==
--- NOTE | 2019-05-02 15:56 | DI.US_ITS ---
EXAM: US OB RONDA WEIGHT CLINICAL HISTORY: gestational diabetes, O24.419 TECHNIQUE: Ultrasound performed using standard protocol. COMPARISON: US OB RONDA WEIGHT from 04/11/2019 FINDINGS: The fetus is in transverse position with the head toward the maternal left. The placenta is anterior . The biometric measurements correspond to 27 weeks 1 day. The estimated weight is 1020 grams , near the 50th percentile. The amniotic fluid index is 20.9. IMPRESSION: size and weight are within the expected range.
== END 2019-05-02 02:44 ==
PROVIDERS: Visit Provider Obstetrics & Gynecology
DX: O24.419 Gestational diabetes mellitus in pregnancy, unspecified control (principal); Z3A.27 27 weeks gestation of pregnancy
CPT/HCPCS: 76816

== ENCOUNTER 2019-05-24 21:01 | Emergency (ER) | payer MEDICAID, SELFPAY ==
[2019-05-24 21:10] VITALS: BP 130/77; PULSE 108; RESP 18; TEMP 36.7; O2SAT 99
[2019-05-24] MEDS: Hydrocortisone 25 MG SUPP PR (23:35)
--- NOTE | 2019-05-26 01:39 | W.ED.GENAD ---
Discharge Plan Disposition Patient Disposition: HOME Condition: Improving Discharge Details Chief Complaint: Vascular Clinical Impression: Hemorrhoid Primary Care Provider: None,None ED Provider: Tomeka Crenshaw Home Meds and New Rx's Prescriptions: New hydrocortisone acetate [Anusol-HC] 25 mg suppository 25 mg NM BID Qty: 12 RF: 0 No Action Flintstones Complete (iron) Tablet,Chewable 2 tab PO DAILY RF: 0 diphenhydramine HCl [Benadryl] 25 mg capsule 25 mg PO QHS PRN (Reason: sleep) RF: 0 (DME) blood-glucose meter [Accu-Chek Suri Plus Meter] Misc See Rx Instructions .ROUTE .MEDSUPPLY Qty: 1 RF: 0 (DME) Accu-Chek Suri Plus test strp Strip See Rx Instructions .ROUTE .MEDSUPPLY Qty: 100 RF: 2 (DME) lancets [Accu-Chek Softclix Lancets] Misc See Rx Instructions .ROUTE .MEDSUPPLY Qty: 100 RF: 2 citalopram [Celexa] 20 mg tablet 20 mg PO DAILY Qty: 30 RF: 2 insulin detemir U-100 100 unit/mL (3 mL) insulin pen 10 unit SC QHS Qty: 15 RF: 0 cyclobenzaprine 5 mg tablet 5 mg PO TID PRN (Reason: muscle spasm) Qty: 10 RF: 0 Discharge Instructions Instructions: Hemorrhoids (ED) Additional Instructions: Sitz bath. Warm soaks in the tub. Tylenol for soreness if needed Use stool softener [id number] either Colace, senna or MiraLAX. Maintain high-fiber diet. Follow-up with surgeon for any persistent pain or return to the emergency room as discussed if hemorrhoid is very hard and painful. Go directly upstairs for nonstress test. Return to the emergency room for any worsening, concerns or alarming symptoms sooner if needed Referrals: Nikki Lujan DO [OSTEOPATHIC DOCTOR] - Discharge Data Discharge Date/Time-TO BE ENTERED AT DEPARTURE: 05/24/19 23:15 Medical Decision Making This is a 23-year-old patient who is presenting to the emergency room for complaints of a new hemorrhoid which developed in the last 24 hours. Patient denies any history of similar. Patient reports moderate rectal pain. Lack of improvement with a single application of Preparation H topically which resulted in burning discomfort or soaking in the tub. On exam patient does have a notable hemorrhoid which is tender yet is remained soft. Patient does have mild lower abdominal discomfort on exam. Patient reports she is 30 weeks and did deliver her last child at 31 weeks due to complications. Lidocaine jelly applied to hemorrhoid. Dr. Luke also evaluated this patient and does agree that at this time hemorrhoid is not thrombosed and does not require incision. He was able to fully reduce hemorrhoid at the bedside. Anusol suppository ordered. Dr. Hernadez also evaluated the patient given her complaints of back pain radiating toward her abdomen. He agrees that the patient is appropriate for nonstress test after discharge from the emergency room. Patient's hemorrhage currently reduced. Patient encouraged to soften stool either with use of MiraLAX or Colace or senna and to maintain high-fiber diet. Keagle's encouraged, Anusol suppositories prescribed. Surgical referral provided if patient notes increasing pain or lack of improvement. Precautions discussed for which patient should have return. Patient reports her understanding. Patient discharged to [facility] for nonstress test. HPI General Date/Time Provider Initiated Documentation: 05/24/19 21:13. HPI Narrative: This a 23-year-old patient who is 30 weeks presenting for a hemorrhoid. Patient reports onset of rectal pain beginning yesterday. Denies rectal bleeding. Patient denies history of hemorrhoids in the past. Patient reports she tried Preparation H which is quite uncomfortable. She tried soaking to relieve burning she experienced with Preparation H. No significant relief with soaking in the tub. Patient does report mild back pain radiating into her abdomen. She does report historically she delivered at 31 weeks. Patient is primarily concerned with rectal pain she is experienced today. Denies dizziness, weakness or fatigue. She does report increased straining with bowel movements and constipation. Otherwise denies any blood with bowel movements. Denies urinary urgency or frequency. No other concerns or complaints. Patient is followed very closely by [facility]. Has received care throughout her . Related Data Home Medications Medication Instructions Recorded Confirmed diphenhydramine HCl 25 mg capsule 25 mg PO QHS PRN 01/03/19 05/24/19 pediatric [id number]-[id number] 2 tab PO DAILY tab 01/03/19 05/24/19 blood sugar diagnostic #100 each 02/21/19 05/16/19 blood-glucose meter #1 each 02/21/19 05/16/19 lancets #100 each 02/21/19 05/16/19 cyclobenzaprine 5 mg tablet 5 mg PO TID PRN #10 tab 04/02/19 05/24/19 citalopram 20 mg tablet 20 mg PO DAILY #30 tab 05/02/19 05/24/19 insulin detemir U-100 100 unit/mL 10 unit SC QHS #15 ml 05/16/19 05/24/19 (3 mL) subcutaneous pen hydrocortisone acetate [Anusol-HC] 25 mg NM BID #12 each 05/24/19 Previous Rx's Medication Instructions Recorded blood sugar diagnostic #100 each 02/21/19 blood-glucose meter #1 each 02/21/19 lancets #100 each 02/21/19 cyclobenzaprine 5 mg tablet 5 mg PO TID PRN #10 tab 04/02/19 citalopram 20 mg tablet 20 mg PO DAILY #30 tab 05/02/19 insulin detemir U-100 100 unit/mL 10 unit SC QHS #15 ml 05/16/19 (3 mL) subcutaneous pen hydrocortisone acetate [Anusol-HC] 25 mg NM BID #12 each 05/24/19 Allergies Allergy/AdvReac Type Severity Reaction Status Date / Time cefaclor Allergy Unknown Verified 05/24/19 21:14 Cephalosporins Allergy Unknown Verified 05/24/19 21:14 fluoxetine [From Prozac] AdvReac Severe Psychosis Verified 05/24/19 21:14 sertraline [From Zoloft] AdvReac Severe suicidal, Verified 05/24/19 21:14 homasidal lamotrigine AdvReac Intermediate blisters Verified 05/24/19 21:14 on throat and tongue amphetamine sulfate AdvReac Tachycardia Verified 05/24/19 21:14 [From Adderall] atomoxetine HCl AdvReac Tachycardia Verified 05/24/19 21:14 [From Strattera] dextroamphetamine AdvReac Tachycardia Verified 05/24/19 21:14 [From Adderall] hydromorphone AdvReac Verified 05/24/19 21:14 permethrin AdvReac Skin Rash Verified 05/24/19 21:14 [From RID Complete Lice [place] Kit] piperonyl butoxide AdvReac Skin Rash Verified 05/24/19 21:14 [From RID Complete Lice [place] Kit] pyrethrins AdvReac Skin Rash Verified 05/24/19 21:14 [From RID Complete Lice [place] Kit] General Stated Complaint: Vascular SHARRI: 4 Review of Systems All systems reviewed & are unremarkable except as noted in HPI and below Constitutional Constitutional: Denies fever(s) and Denies headache(s) ENT Ears, Nose, Mouth, and Throat: Denies headache(s) Gastrointestinal Gastrointestinal: Reports abdominal pain, Reports cramping, Denies nausea and Denies vomiting Musculoskeletal Musculoskeletal: Reports back pain Neurologic Neurologic: Denies headache(s) [facility] Medical History Major depressive disorder, recurrent, unspecified (Acute) (Acute 04/28/14) Surgical History History of carpal tunnel surgery of right wrist (Acute) History of carpal tunnel surgery of right wrist (Acute) Social History Smoking/Tobacco Use Status: Former Tobacco Use Quit Date: 03/17/18 Alcohol Intake: former Year quit: 2018 Drug use: Never Do you feel safe at home: Yes Do you feel safe in your relationship?: Yes Female Reproductive History Menstrual Age of Menarche: 9 control method: pills History History 6 Para 4 Hx # Term Pregnancies 2 Multiple births 0 Hx # Pregnancies 2 Ectopic pregnancies 0 AB induced 0 Hx Number of Living Children 4 AB spontaneous 1 Past Pregnancies Del. Date GA/Weeks # Outcome Route Wgt Sex Labor Lgth Anesthesia Location Prov Complic 05/09/12 38 No Successful vaginal 2.155 kg Male [address] paula 04/28/14 40 No Successful vaginal 4.054 kg Male [address] aguirre 01/22/16 42 No Successful vaginal Female [address] guevara @[place] 03/29/18 31 No Successful vaginal 1.361 kg Male 24 [facility] Delivery Date: 05/09/12 On 08/20/19 @ 15:34 YASMANY LUNDY breech sent to [facility], low platelets, breathing tube. Delivery Date: 04/28/14 On 01/03/19 @ 15:37 YASMANY LUNDY iol for polyhydramnious. Delivery Date: 01/22/16 On 01/03/19 @ 15:40 KAMRONLIBRADOA none Delivery Date: 03/29/18 On 01/03/19 @ 15:43 KAMRONYASMANY pprom sent to [facility], in house x 3 days statred iol on day 4 delivered day 5. Exam Narrative Exam Narrative: CONST: Healthy appearing patient, in no acute distress. Well hydrated. Alert and oriented. NECK: Normal visual inspection. FROM. Trachea midline. No Midline tenderness. CHEST: Normal insepection of the chest. RESP: Normal respiratory effort. Speaking full sentences. No cough. No audible wheezing. No retractions. CARDIO: No JVD. No murmur. Regular rate and rhythm. GI: Gravid abdomen. Mild lower abdominal pain with palpation bilaterally. Bowel sounds are present throughout. No peritoneal signs. No rebound or guarding. Rectal exam reveals a soft painful hemorrhoid approximately 1.5 cm. No obvious bleeding or open wounds. MUSCULOSKELETAL: Normal Gait. FROM of all extremities. SKIN: Normal. Dry. No rashes. NEURO: Alert and awake. Speech clear. PSYCH: Normal affect. Cooperative. Course Vital Signs Vital signs: Vital Signs Temperature 36.7 C 05/24/19 21:10 Pulse 108 H 05/24/19 21:10 Respiratory Rate 18 05/24/19 21:10 Blood Pressure 130/77 05/24/19 21:10 Pulse Oximetry 99 05/24/19 21:10 Temperature 36.7 C 05/24/19 21:10 Temperature Source Temporal Artery Scan 05/24/19 21:10 Pulse 108 H 05/24/19 21:10 Respiratory Rate 18 05/24/19 21:10 Respiratory Effort 05/24/19 21:18 Blood Pressure 130/77 05/24/19 21:10 Blood Pressure Position Supine 05/24/19 21:10 Pulse Oximetry 99 05/24/19 21:10 Oxygen Delivery Method Room Air 05/24/19 21:10 Oxygen Flow Rate 0 05/24/19 21:10
== END 2019-05-24 23:15 | disposition home or self-care (01) ==
PROVIDERS: Emergency Provider Physician Assistant
DX: O22.43 Hemorrhoids in pregnancy, third trimester (principal); O26.893 Other specified pregnancy related conditions, third trimester; Z3A.30 30 weeks gestation of pregnancy
CPT/HCPCS: 99283

== ENCOUNTER 2019-05-24 23:37 | Outpatient (CLI) | payer MEDICAID, SELFPAY | END 2019-05-24 23:57 | PROVIDERS: Visit Provider Obstetrics & Gynecology | DX: O24.419 Gestational diabetes mellitus in pregnancy, unspecified control (principal); Z3A.30 30 weeks gestation of pregnancy | CPT/HCPCS: 59025 ==

== ENCOUNTER 2019-05-26 18:40 | Emergency (ER) | payer MEDICAID, SELFPAY ==
[2019-05-26 18:43] VITALS: BP 135/79; PULSE 98; RESP 22; TEMP 36.2; O2SAT 99
--- NOTE | 2019-05-26 18:50 | W.ED.GENAD ---
Discharge Plan Disposition Patient Disposition: HOME Condition: Improving Discharge Details Chief Complaint: GenMedical Clinical Impression: External hemorrhoid, thrombosed Primary Care Provider: None,None ED Provider: Mickie Hernandez Home Meds and New Rx's Prescriptions: New hydrocodone-acetaminophen [Hollywood] 5-325 mg tablet 1 tab PO Q6H PRN (Reason: pain) Qty: 5 RF: 0 Continued Flintstones Complete (iron) Tablet,Chewable 2 tab PO DAILY RF: 0 diphenhydramine HCl [Benadryl] 25 mg capsule 25 mg PO QHS PRN (Reason: sleep) RF: 0 (DME) blood-glucose meter [Accu-Chek Suri Plus Meter] Misc See Rx Instructions .ROUTE .MEDSUPPLY Qty: 1 RF: 0 (DME) Accu-Chek Suri Plus test strp Strip See Rx Instructions .ROUTE .MEDSUPPLY Qty: 100 RF: 2 (DME) lancets [Accu-Chek Softclix Lancets] Misc See Rx Instructions .ROUTE .MEDSUPPLY Qty: 100 RF: 2 citalopram [Celexa] 20 mg tablet 20 mg PO DAILY Qty: 30 RF: 2 insulin detemir U-100 100 unit/mL (3 mL) insulin pen 10 unit SC QHS Qty: 15 RF: 0 cyclobenzaprine 5 mg tablet 5 mg PO TID PRN (Reason: muscle spasm) Qty: 10 RF: 0 hydrocortisone acetate [Anusol-HC] 25 mg suppository 25 mg VA BID Qty: 12 RF: 0 Discharge Instructions Instructions: Hemorrhoids (ED), Hemorrhoidectomy (ED) Additional Instructions: Encourage water intake. You may need use Tylenol as needed for discomfort. If this is insufficient at help with your discomfort, you may use the Hollywood as prescribed. Please pay attention to how much Tylenol you are taking as Hollywood contains 325 mg in each tablet. You should not take more than 4000 mg of Tylenol daily. Please see this medication only as prescribed. Keep this in a safe place. Do not drive will take this medication. Please continue with stool softeners. Please perform sitz bath's as discussed at least 4 times daily. Please keep your upcoming appointment with PHYSICAL THERAPY ASSISTANT INSTRUCTOR for reevaluation. The packing that is in place will fall out, if it has not come out in the next 48 hours, you may remove this. If you develop fever/chills, increased pain, persistent bleeding, shortness of breath or other new/worsening symptoms please seek care urgently once again. Referrals: Fatou Desir [Emergency Nurse] - Lexa Hernadez MD [ NON-[facility] [facility] STAFF PHYSICIAN] - Medical Decision Making heart rate 150. HPI General Mode of arrival: ambulatory. Date/Time Provider Initiated Documentation: 05/26/19 18:50. Limitations to Documentation: no limitations. Information obtained by: patient, family (significant other) and RN notes reviewed. History of Present Illness 23 year old F presents to the emergency department with the chief complaint of hemorrhoid, described as severe, with intensity rated at 9. Quality is described as burning, and is localized to the buttocks. Patient reports no radiation. Patient started experiencing this day(s) (3) and it has been constant. No relieving factors improve symptom(s), No exacerbating factors reported . Patient notes no other symptoms.; denies chest pain, diaphoresis, fever/chills, loss of appetite and nausea/vomiting. Patient did receive the following treatments prior to arrival, other (tylenol) Related Data Home Medications Medication Instructions Recorded Confirmed diphenhydramine HCl 25 mg capsule 25 mg PO QHS PRN 01/03/19 05/26/19 pediatric [id number] 2 tab PO DAILY tab 01/03/19 05/26/19 blood sugar diagnostic #100 each 02/21/19 05/16/19 blood-glucose meter #1 each 02/21/19 05/16/19 lancets #100 each 02/21/19 05/16/19 cyclobenzaprine 5 mg tablet 5 mg PO TID PRN #10 tab 04/02/19 05/26/19 citalopram 20 mg tablet 20 mg PO DAILY #30 tab 05/02/19 05/26/19 insulin detemir U-100 100 unit/mL 10 unit SC QHS #15 ml 05/16/19 05/26/19 (3 mL) subcutaneous pen hydrocortisone acetate [Anusol-HC] 25 mg VA BID #12 each 05/24/19 hydrocodone-acetaminophen [Hollywood] 1 tab PO Q6H PRN #5 tab 05/26/19 Previous Rx's Medication Instructions Recorded blood sugar diagnostic #100 each 02/21/19 blood-glucose meter #1 each 02/21/19 lancets #100 each 02/21/19 cyclobenzaprine 5 mg tablet 5 mg PO TID PRN #10 tab 04/02/19 citalopram 20 mg tablet 20 mg PO DAILY #30 tab 05/02/19 insulin detemir U-100 100 unit/mL 10 unit SC QHS #15 ml 05/16/19 (3 mL) subcutaneous pen hydrocortisone acetate [Anusol-HC] 25 mg VA BID #12 each 05/24/19 hydrocodone-acetaminophen [Hollywood] 1 tab PO Q6H PRN #5 tab 05/26/19 Allergies Allergy/AdvReac Type Severity Reaction Status Date / Time cefaclor Allergy Unknown Verified 05/26/19 18:47 Cephalosporins Allergy Unknown Verified 05/26/19 18:47 fluoxetine [From Prozac] AdvReac Severe Psychosis Verified 05/26/19 18:47 sertraline [From Zoloft] AdvReac Severe suicidal, Verified 05/26/19 18:47 homasidal lamotrigine AdvReac Intermediate blisters Verified 05/26/19 18:47 on throat and tongue amphetamine sulfate AdvReac Tachycardia Verified 05/26/19 18:47 [From Adderall] atomoxetine HCl AdvReac Tachycardia Verified 05/26/19 18:47 [From Strattera] dextroamphetamine AdvReac Tachycardia Verified 05/26/19 18:47 [From Adderall] hydromorphone AdvReac Verified 05/26/19 18:47 permethrin AdvReac Skin Rash Verified 05/26/19 18:47 [From RID Complete Lice [place] Kit] piperonyl butoxide AdvReac Skin Rash Verified 05/26/19 18:47 [From RID Complete Lice [place] Kit] pyrethrins AdvReac Skin Rash Verified 05/26/19 18:47 [From RID Complete Lice Freedom Kit] General Stated Complaint: GenMedical SHARRI: 4 Review of Systems Constitutional Constitutional: Reports as per HPI, Denies chills and Denies fever(s) Gastrointestinal Gastrointestinal: Reports as per HPI, Denies abdominal pain, Reports melena, Reports change in stool character (chronic constipation), Denies nausea and Denies vomiting Genitourinary Genitourinary: Reports as per HPI (30 week gestation) Musculoskeletal Musculoskeletal: Reports as per HPI Integumentary/Breasts Skin/Breast: Reports as per HPI Neurologic Neurologic: Reports as per HPI, Denies sensory deficit and Denies paresthesias [facility] Medical History Major depressive disorder, recurrent, unspecified (Acute) (Acute 04/28/14) Surgical History History of carpal tunnel surgery of right wrist (Acute) History of carpal tunnel surgery of right wrist (Acute) Social History Smoking/Tobacco Use Status: Former Tobacco Use Quit Date: 03/17/18 Alcohol Intake: former Year quit: 2018 Drug use: Never Do you feel safe at home: Yes Do you feel safe in your relationship?: Yes Female Reproductive History Menstrual Age of Menarche: 9 control method: pills History History 6 Para 4 Hx # Term Pregnancies 2 Multiple births 0 Hx # Pregnancies 2 Ectopic pregnancies 0 AB induced 0 Hx Number of Living Children 4 AB spontaneous 1 Past Pregnancies Del. Date GA/Weeks # Outcome Route Wgt Sex Labor Lgth Anesthesia Location Prov [facility] 05/09/12 38 No Successful vaginal 2.155 kg Male [address] paula 04/28/14 40 No Successful vaginal 4.054 kg Male [address] aguirre 01/22/16 42 No Successful vaginal Female [address] guevara @[place] 03/29/18 31 No Successful vaginal 1.361 kg Male 24 [facility] Delivery Date: 05/09/12 On 01/03/19 @ 15:34 PREM LUNDY breech sent to [facility], low platelets, breathing tube. Delivery Date: 04/28/14 On 01/03/19 @ 15:37 PREM LUNDY iol for polyhydramnious. Delivery Date: 01/22/16 On 01/03/19 @ 15:40 PREM LUNDY none Delivery Date: 03/29/18 On 01/03/19 @ 15:43 LELONG,ANEA pprom sent to [facility], in house x 3 days statred iol on day 4 delivered day 5. Exam Const General: cooperative, healthy appearing, comfortable, no acute distress and well developed Nutritional Appearance: average body habitus and well nourished Orientation: alert and awake Resp Effort & Inspection: normal respiratory effort, able to speak in complete sentences and no respiratory distress Cardio Rate: regular rate Rhythm: regular rhythm GI Inspection: normal to inspection (abdominal exam consistent with gestational age, no pain) Rectal Exam - female: abnormal visual inspection (firm, purple thrombosed hemorrhoid 3cm x 2 cm. No bleeding) Skin General skin exam: rashes and/or lesions noted (as above) Neuro General: alert and awake Cognition: normal cognition Speech: speech normal Gait: normal gait Sensory Exam: no sensory deficits noted Psych Appearance: grossly normal and well kempt Mental Status: mental status grossly normal Speech and Movement: speech and movement normal Course Vital Signs Vital signs: Vital Signs Temperature 36.2 C L 05/26/19 18:43 Pulse 98 H 05/26/19 18:43 Respiratory Rate 22 05/26/19 18:43 Blood Pressure 135/79 05/26/19 18:43 Pulse Oximetry 99 05/26/19 18:43 Temperature 36.2 C L 05/26/19 18:43 Temperature Source Skin 05/26/19 18:43 Pulse 98 H 05/26/19 18:43 Respiratory Rate 22 05/26/19 18:43 Respiratory Effort 05/26/19 18:48 Blood Pressure 135/79 05/26/19 18:43 Blood Pressure Position Sitting 05/26/19 18:43 Pulse Oximetry 99 05/26/19 18:43 Oxygen Delivery Method Room Air 05/26/19 18:43 Oxygen Flow Rate 0 05/26/19 18:43 Pain Level 9 05/26/19 18:43 Procedures Other Description: Patient is a pleasant 23-year-old female presents today with chief complaint of hemorrhoid. She is accompanied by her significant other. Patient was seen here 2 days ago for evaluation of painful hemorrhoid. At that time, it appeared nonthrombosed. She was advised to perform sitz bath's and apply topical agents to help with discomfort. Patient has not been performing sitz baths as she is concerned that this may be harmful to her going child. Patient is 30 weeks gestation. She denies any abdominal pain. No fevers or chills. States that pain is progressively been increasing. She has not had bowel movement recently, has not been using stool softeners routinely. Has been trying to avoid having a bowel movement. heart rate 150. On exam, patient does appear uncomfortable. She has a 3 cm x 2 cm thrombosed external hemorrhoid. I did asked Dr. Torres to evaluate this as well and he agrees that this is thrombosed and will likely benefit from excision. I discussed risk and benefits of this with the patient at length. I did consult with Dr. Hernadez, patient's PHYSICAL THERAPY ASSISTANT INSTRUCTOR, who agrees with excision and advised that narcotic pain management will likely be needed for this patient would be appropriate if pain warrants. Patient does have an appointment with him on Wednesday for reevaluation. Patient has a thrombosed external hemorrhoid. Patient discussed risks benefits as well as expected procedural steps of excision. She voiced understanding wished to proceed. Area was initially anesthetized with LET. Area was cleansed x3 with chlorhexidine. Sterile dressing was applied. 1% lidocaine was infiltrated. 4 cc was used. This eventually anesthetized the area. A elliptical incision was then made radial to the anal orifice. Clot was then excised with digital pressure and forceps. Large amount of clot burden was removed. The area was then packed with iodoform gauze and dressing applied. Patient did tolerate this well. Patient did have an episode of nausea, was treated with ODT Zofran. This resolves her symptoms. She was given 5 mg Hollywood. Will prescribe #5 tabs for prescription. She was given strict usage instructions. Encourage sitz bath's. Packing and wound care was discussed at length. Wound care was demonstrated for significant other who has been monitoring this area for the patient. She was given strict return precautions. All of her questions and concerns were addressed and she is in agreement with this plan.
[2019-05-26] MEDS: Lidocaine/Epinephri/Tetracaine Topical Gel 3 ML TP (19:24)
[2019-05-26] MEDS: Ondansetron O.D.T. 4 MG TABEF (20:27)
== END 2019-05-26 21:25 | disposition home or self-care (01) ==
PROVIDERS: Emergency Provider Physician Assistant; PCP Nurse Practitioner Family
DX: O22.43 Hemorrhoids in pregnancy, third trimester (principal); K64.5 Perianal venous thrombosis; Z3A.30 30 weeks gestation of pregnancy; R11.0 Nausea
CPT/HCPCS: 36416; 46083; 82962

== ENCOUNTER 2019-05-30 01:21 | Outpatient (CLI) | payer MEDICAID, SELFPAY ==
--- NOTE | 2019-05-30 15:27 | DI.US_ITS ---
EXAM: US OB RONDA WEIGHT CLINICAL HISTORY: DM in , Z34.90 TECHNIQUE: Ultrasound performed using standard protocol. COMPARISON: US OB [facility] WE[facility] from 05/02/2019 FINDINGS: There is a single living intrauterine gestation. Estimated sonographic age is 31 weeks 1 day. The fetus is in the breech presentation. heart rate is 162 beats per minute. Estimated weight is 1706 grams. This is the 47th percentile. Amniotic fluid index is 16.3 centimeters. Visually, amniotic fluid appears within normal limits. The placenta is anterior without evidence of previa. IMPRESSION: Single living intrauterine gestation. The estimated sonographic age is 31 weeks 1 day.
== END 2019-05-30 01:41 ==
PROVIDERS: Visit Provider Obstetrics & Gynecology
DX: O24.414 Gestational diabetes mellitus in pregnancy, insulin controlled (principal); O32.1XX0 Maternal care for breech presentation, not applicable or unspecified; Z3A.31 31 weeks gestation of pregnancy
CPT/HCPCS: 76816

== ENCOUNTER 2019-06-06 09:26 | Outpatient (CLI) | payer MEDICAID, SELFPAY | END 2019-06-06 09:46 | PROVIDERS: Visit Provider Obstetrics & Gynecology Gynecology | DX: O24.414 Gestational diabetes mellitus in pregnancy, insulin controlled (principal); Z79.4 Long term (current) use of insulin; Z3A.31 31 weeks gestation of pregnancy | CPT/HCPCS: 59025 ==

== ENCOUNTER 2019-06-09 09:15 | Outpatient (CLI) | payer MEDICAID, SELFPAY | END 2019-06-09 09:35 | PROVIDERS: Visit Provider Obstetrics & Gynecology | DX: O24.414 Gestational diabetes mellitus in pregnancy, insulin controlled (principal); Z79.4 Long term (current) use of insulin; Z3A.32 32 weeks gestation of pregnancy | CPT/HCPCS: 59025 ==

== ENCOUNTER 2019-06-13 08:24 | Outpatient (CLI) | payer MEDICAID, SELFPAY | END 2019-06-13 08:44 | PROVIDERS: Visit Provider Obstetrics & Gynecology Gynecology | DX: O24.414 Gestational diabetes mellitus in pregnancy, insulin controlled (principal); Z79.4 Long term (current) use of insulin; Z3A.32 32 weeks gestation of pregnancy | CPT/HCPCS: 59025 ==

== ENCOUNTER 2019-06-14 10:39 | Observation (INO) | payer MEDICAID, SELFPAY ==
[2019-06-14 10:59] VITALS: BP 130/96; PULSE 126; RESP 18; TEMP 36.5; O2SAT 99
--- NOTE | 2019-06-14 11:20 | ED.GENADUL_ITS ---
Discharge Plan Disposition Condition: Good Discharge Details Chief Complaint: Trauma Admit Date/Time: 06/14/19 11:18 Admit Provider: Christel Gautam Attending Provider: Christel Gautam Primary Care Provider: Glenis Borja ED Provider: Tomeka Crenshaw Discharge Orders Discharge Orders: Discharge Order (Routine); Ordered 06/14/19 Ordered By: Digna Jolley Discharge Data Discharge Date/Time-TO BE ENTERED AT DEPARTURE: 06/14/19 11:55 Medical Decision Making This is a 23-year-old patient presenting after a fall. Patient is 8 months . Patient reports she slipped on an icy driveway and fell onto her right side while carrying her 1-year-old child. Patient denies striking her head. Denies headache, dizziness, nausea, vomiting or loss of consciousness. She denies any neck pain at this time. Full range of motion of neck. Patient does report lower back pain bilaterally without radiating symptoms into the legs or associated numbness, tingling or weakness of extremities. Patient denies any chest pain difficulty no shortness of breath or wheezing. Patient is primarily concerned with mild abdominal cramping which is developed since her fall 30 minutes ago. Patient was cramping is intermittent. heart tones are noted at the bedside with a heart rate of 174. Patient has no associated vaginal discharge or bleeding. Patient does report cramping is new since her fall. Patient is followed [facility] OB [facility]. Discussed x-ray of shoulder or lower back which we will defer at this time and send patient up to OB. We did discuss her suspicion for fracture of shoulder and lower back. Patient has a very low suspicion for any acute fracture at this time. Will provide a sling and send up to the OB floor. I did speak with patient accounts specialist Christel. On-call OB doctor is currently in the operating room. Christel will accept this patient upstairs and initiate stress testing and then refer patient over to OB. Spoke with Dr. Kaiser who also recommends sending patient directly up to the floor at this time for observation of abdominal cramping. On exam patient does have mild abdominal discomfort in the left upper quadrant and mild cramping in the lower abdomen. No obvious peritoneal signs, distention or bruising at this time. Admission orders placed for transfer upstairs to OB care [facility] General Date/Time Provider Initiated Documentation: 06/14/19 11:18 . HPI Narrative: Is a 23-year-old patient who is 8 months who presents after a slip and fall on ice 20 to 30 minutes prior to arrival. Patient reports she was on the last step leaving her house and stepped onto an icy driveway slipped landing onto her right side. Patient reports mild shoulder pain and lower back pain. Patient does have a preserved range of motion of her right shoulder but does report mild soreness. Patient also complaining of bilateral lower back pain. No chest pain difficulty no shortness of breath or wheezing. Denies striking head or neck. Does have chronic neck pain which seems unchanged. Patient is complaining of mild abdominal cramping which developed since fall in the last 30 minutes. Patient denies any obvious vaginal discharge or leaking fluid. Patient denies any dizziness, weakness or fatigue. Patient denies sensation of passing out. Patient denies any numbness, tingling or weakness of upper or lower extremities since fall. Patient has been able to ambulate without difficulty. No other apparent injuries reported. Patient denies any obvious abdominal distention. Related Data Home Medications Medication Instructions Recorded Confirmed diphenhydramine HCl 25 mg capsule 25 mg PO QHS PRN 01/03/19 06/13/19 pediatric [id number] 2 tab PO DAILY tab 01/03/19 06/13/19 lancets #100 each 02/21/19 06/13/19 cyclobenzaprine 5 mg tablet 5 mg PO TID PRN #10 tab 04/02/19 06/13/19 citalopram 20 mg tablet 20 mg PO DAILY #30 tab 05/02/19 06/13/19 insulin detemir U-100 100 unit/mL 10 unit SC QHS #15 ml 05/16/19 06/13/19 (3 mL) subcutaneous pen insulin NPH isoph U-100 human 100 5 unit SC QHS #3 ml 05/30/19 06/13/19 unit/mL (3 mL) subcutaneous pen pen needle, diabetic 33 gauge x #100 each 05/31/19 06/13/1909/29 Previous Rx's Medication Instructions Recorded lancets #100 each 02/21/19 cyclobenzaprine 5 mg tablet 5 mg PO TID PRN #10 tab 04/02/19 citalopram 20 mg tablet 20 mg PO DAILY #30 tab 05/02/19 insulin detemir U-100 100 unit/mL 10 unit SC QHS #15 ml 05/16/19 (3 mL) subcutaneous pen insulin NPH isoph U-100 human 100 5 unit SC QHS #3 ml 05/30/19 unit/mL (3 mL) subcutaneous pen pen needle, diabetic 33 gauge x #100 each 05/31/1909/29 Allergies Allergy/AdvReac Type Severity Reaction Status Date / Time cefaclor Allergy Unknown Verified 06/13/19 14:50 Cephalosporins Allergy Unknown Verified 06/13/19 14:50 fluoxetine [From Prozac] AdvReac Severe Psychosis Verified 06/13/19 14:50 sertraline [From Zoloft] AdvReac Severe suicidal, Verified 06/13/19 14:50 homasidal lamotrigine AdvReac Intermediate blisters Verified 06/13/19 14:50 on throat and tongue amphetamine sulfate AdvReac Tachycardia Verified 06/13/19 14:50 [From Adderall] atomoxetine HCl AdvReac Tachycardia Verified 06/13/19 14:50 [From Strattera] dextroamphetamine AdvReac Tachycardia Verified 06/13/19 14:50 [From Adderall] hydromorphone AdvReac Verified 06/13/19 14:50 permethrin AdvReac Skin Rash Verified 06/13/19 14:50 [From RID Complete Lice [place] Kit] piperonyl butoxide AdvReac Skin Rash Verified 06/13/19 14:50 [From RID Complete Lice [place] Kit] pyrethrins AdvReac Skin Rash Verified 06/13/19 14:50 [From RID Complete Lice [place] Kit] General Stated Complaint: Trauma SHARRI: 3 Review of Systems All systems reviewed & are unremarkable except as noted in HPI and below Constitutional Constitutional: Denies fatigue, Denies headache(s) and Denies malaise Eyes Eyes: Denies blurry vision and Denies diplopia ENT Ears, Nose, Mouth, and Throat: Denies vertigo, Denies dizziness, Denies headache(s) and Denies neck pain Cardiovascular Cardiovascular: Denies chest pain, Denies diaphoresis, Denies syncope, Denies palpitations and Denies dyspnea Respiratory Respiratory: Denies cough and Denies dyspnea Gastrointestinal Gastrointestinal: Reports abdominal pain, Reports cramping, Denies diarrhea, Denies nausea and Denies vomiting Genitourinary Genitourinary: Denies abnormal vaginal bleeding and Denies vaginal discharge Musculoskeletal Musculoskeletal: Reports back pain, Denies deformity, Denies neck pain, Denies numbness and Denies tingling Neurologic Neurologic: Denies vertigo, Denies dizziness, Denies syncope, Denies headache(s), Denies numbness and Denies tingling Endocrine Endocrine: Denies fatigue and Denies palpitations [facility] Medical History Major depressive disorder, recurrent, unspecified (Acute) (Acute 04/28/14) Social History Smoking/Tobacco Use Status: Former Tobacco Use Quit Date: 03/17/18 Alcohol Intake: former Year quit: 2018 Drug use: Never Do you feel safe at home: Yes Do you feel safe in your relationship?: Yes Female Reproductive History Menstrual Age of Menarche: 9 control method: pills History History 6 Para 4 Hx # Term Pregnancies 2 Multiple births 0 Hx # Pregnancies 2 Ectopic pregnancies 0 AB induced 0 Hx Number of Living Children 4 AB spontaneous 1 Past Pregnancies Del. Date GA/Weeks # Outcome Route Wgt Sex Labor Lgth Anesthes ia Location [facility] 05/09/12 38 No Successful vaginal 2.155 kg Male 5 hr vinay paula 04/28/14 40 No Successful vaginal 4.054 kg Male 7 hrs vinay aguirre 01/22/16 42 No Successful vaginal Female [address] guevara @[place] 03/29/18 31 No Successful vaginal 1.361 kg Male 24 d [facility] Delivery Date: 05/09/12 On 01/03/19 @ 15:34 [place]M [place]DY [place] [facility] [place], breathing tube. Delivery Date: 04/28/14 On 01/03/19 @ 15:37 PREM LUNDY iol for polyhydramnious. Delivery Date: 01/22/16 On 01/03/19 @ 15:40 PREM LUNDY none Delivery Date: 03/29/18 On 01/03/19 @ 15:43 LELONGLIBRADOPilo [place]rom [place] [facility] [place] 3 days statred iol on day 4 delivered day 5. Exam Narrative Exam Narrative: CONST: Healthy appearing patient, in no acute distress. Well hydrated. Alert and oriented. EYES: General normal appearance. Alignment normal. Eyelids normal. Conjunctiva normal. NECK: Normal visual inspection. FROM. Trachea midline. No Midline tenderness. CHEST: Normal insepection of the chest. No palpable chest tenderness. RESP: Normal respiratory effort. Speaking full sentences. No cough. No audible wheezing. No retractions. Breath sounds clear, full and equal bilaterally. No rhonchi, rales or wheezing. CARDIO: No JVD. No murmur, regular rate and rhythm MUSCULOSKELETAL: Normal Gait. Mild pain with palpation of the distal clavicle, AC joint and left shoulder. Full range of motion on exam. No obvious deformities. No ecchymosis or swelling. No humeral pain, elbow pain, forearm pain, wrist pain or hand pain. [employer] strength intact and equal bilaterally. Sensation equal bilaterally the upper extremities. No left arm complaints, full range of motion of left arm. Full range of motion lower extremities. Mild palpable tenderness of the right lateral hip. Straight leg raise intact. Strength intact of lower extremities. No foot drop. Sensation intact distally. Back: No cervical, thoracic tenderness of the midline. Mild lumbar pain with palpation and paraspinal tenderness bilaterally. No obvious ecchymosis. Course Vital Signs Vital signs: Vital Signs Temperature 36.5 C 06/14/19 10:59 Pulse 126 H 06/14/19 10:59 Respiratory Rate 18 06/14/19 10:59 Blood Pressure 130/96 H 06/14/19 10:59 Pulse Oximetry 99 06/14/19 10:59 Temperature 36.5 C 06/14/19 10:59 Temperature Source Temporal Artery Scan 06/14/19 10:59 Pulse 126 H 06/14/19 10:59 Respiratory Rate 18 06/14/19 10:59 Respiratory Effort Non-Labored 06/14/19 11:09 Respiratory Depth Normal 06/14/19 11:09 Respiratory Pattern Normal 06/14/19 11:09 Blood Pressure 130/96 H 06/14/19 10:59 Blood Pressure Position Sitting 06/14/19 10:59 Pulse Oximetry 99 06/14/19 10:59 Oxygen Delivery Method Room Air 06/14/19 10:59 Oxygen Flow Rate 0 06/14/19 10:59 Pain Level 6 06/14/19 11:09
[2019-06-14] MEDS: Acetaminophen 500 MG TAB PO (14:31)
== END 2019-06-14 14:40 | disposition home or self-care (01) ==
LOC: ER 11:44 → OBS 11:49
PROVIDERS: Admitting Provider Advanced Practice Midwife; Emergency Provider Physician Assistant; PCP Nurse Practitioner; Visit Provider Advanced Practice Midwife
DX: O9A.213 Injury, poisoning and certain other consequences of external causes complicating pregnancy, third trimester (principal); W17.89XA Other fall from one level to another, initial encounter; Z3A.33 33 weeks gestation of pregnancy
CPT/HCPCS: 99285; 99284; G0378; L3650

== ENCOUNTER 2019-06-16 13:45 | Outpatient (CLI) | payer MEDICAID, SELFPAY | END 2019-06-16 14:05 | PROVIDERS: PCP Nurse Practitioner; Visit Provider Obstetrics & Gynecology | DX: O24.414 Gestational diabetes mellitus in pregnancy, insulin controlled (principal); Z79.4 Long term (current) use of insulin; Z3A.33 33 weeks gestation of pregnancy | CPT/HCPCS: 59025 ==

== ENCOUNTER 2019-06-20 13:38 | Outpatient (CLI) | payer MEDICAID, SELFPAY | END 2019-06-20 13:58 | PROVIDERS: PCP Nurse Practitioner; Visit Provider Obstetrics & Gynecology | DX: O24.414 Gestational diabetes mellitus in pregnancy, insulin controlled (principal); Z79.4 Long term (current) use of insulin; Z3A.33 33 weeks gestation of pregnancy | CPT/HCPCS: 59025 ==

== ENCOUNTER 2019-06-22 20:12 | Observation (INO) | payer MEDICAID, SELFPAY ==
[2019-06-22 22:18] LABS: Bilirubin Negative (Negative); Blood Negative (Negative); Clarity Clear (Clear); Glucose Negative (Negative); Ketones Trace mg/dL (Negative); Leukocyte Esterase Negative (Negative); Nitrite Negative (Negative); Specific Gravity >= 1.030 (1.005-1.025)
[2019-06-22 22:28] LABS: Bacteria Negative HPF (Negative); C & S Indicated? C&S Done As Ordered; Casts Negative LPF (Negative); Crystals Negative HPF (Negative); Epithelial Cells Many HPF (Negative); Mucus Moderate (Negative); RBC Negative HPF (0-2)
== END 2019-06-22 22:00 | disposition home or self-care (01) ==
LOC: OBS 20:30
PROVIDERS: Admitting Provider Obstetrics & Gynecology; PCP Nurse Practitioner; Visit Provider Obstetrics & Gynecology
DX: O60.03 Preterm labor without delivery, third trimester (principal); Z3A.33 33 weeks gestation of pregnancy
CPT/HCPCS: 81003; 81015; 87081; 87086; G0378

== ENCOUNTER 2019-06-23 13:19 | Outpatient (CLI) | payer MEDICAID, SELFPAY | END 2019-06-23 13:39 | PROVIDERS: PCP Nurse Practitioner; Visit Provider Obstetrics & Gynecology | DX: O24.414 Gestational diabetes mellitus in pregnancy, insulin controlled (principal); Z79.4 Long term (current) use of insulin; Z3A.33 33 weeks gestation of pregnancy | CPT/HCPCS: 59025 ==

== ENCOUNTER 2019-06-27 00:49 | Outpatient (CLI) | payer MEDICAID, SELFPAY ==
--- NOTE | 2019-06-27 13:27 | DI.US_ITS ---
EXAM: US OB RONDA AND WEIGHT CLINICAL HISTORY: GESTATIONAL DIABETES MELLITUS TECHNIQUE: Ultrasound performed using standard protocol. COMPARISON: US OB RONDA WEIGHT from 05/30/2019 FINDINGS: Fetus is in cephalic position. Placenta is anterior. The biometric measurements correspond to 34 w eeks 0 days. The estimated weight is 2385 grams corresponding to the 29th percentile. The amn iotic fluid index is normal at 14.6. IMPRESSION: size and weight are within the normal range.
== END 2019-06-27 01:09 ==
PROVIDERS: PCP Nurse Practitioner; Visit Provider Obstetrics & Gynecology
DX: O24.419 Gestational diabetes mellitus in pregnancy, unspecified control (principal); Z3A.34 34 weeks gestation of pregnancy
CPT/HCPCS: 76816

== ENCOUNTER 2019-06-27 09:04 | Outpatient (CLI) | payer MEDICAID, SELFPAY | END 2019-06-27 09:24 | PROVIDERS: PCP Nurse Practitioner; Visit Provider Obstetrics & Gynecology | DX: O24.414 Gestational diabetes mellitus in pregnancy, insulin controlled (principal); Z79.4 Long term (current) use of insulin; Z3A.34 34 weeks gestation of pregnancy | CPT/HCPCS: 76816; 59025 ==

== ENCOUNTER 2019-06-30 07:40 | Outpatient (CLI) | payer MEDICAID, SELFPAY | END 2019-06-30 08:00 | PROVIDERS: PCP Nurse Practitioner; Visit Provider Obstetrics & Gynecology Gynecology | DX: O24.410 Gestational diabetes mellitus in pregnancy, diet controlled (principal); Z3A.35 35 weeks gestation of pregnancy | CPT/HCPCS: 59025 ==

== ENCOUNTER 2019-07-04 09:50 | Outpatient (CLI) | payer MEDICAID, SELFPAY | END 2019-07-04 10:10 | PROVIDERS: PCP Nurse Practitioner; Visit Provider Obstetrics & Gynecology Gynecology | DX: O24.414 Gestational diabetes mellitus in pregnancy, insulin controlled (principal); Z3A.35 35 weeks gestation of pregnancy | CPT/HCPCS: 59025 ==

== ENCOUNTER 2019-07-04 15:53 | Outpatient (REF) | payer MEDICAID, SELFPAY ==
[2019-07-04 16:27] LABS: *AMPHETAMINES SCREEN URINE Negative (Negative); *BARBITURATES SCREEN URINE Negative (Negative); *BENZODIAZEPINES SCREEN URINE Negative (Negative); Cannabinoids THC Negative (Negative); Cocaine Screen,Urine Negative (Negative); METHADONE URINE SCREEN Negative (Negative); OPIATES URINE SCREEN Negative (Negative)
[2019-07-04 16:28] LABS: Tricyclic Antidepressants Negative (Negative)
[2019-07-08 11:22] LABS: Buprenorphine Negative; Norbuprenorphine Negative
== END 2019-07-04 16:13 ==
LOC: LBN 15:53
PROVIDERS: PCP Nurse Practitioner; Visit Provider Obstetrics & Gynecology Gynecology
DX: Z34.93 Encounter for supervision of normal pregnancy, unspecified, third trimester (principal); Z36.85 Encounter for antenatal screening for Streptococcus B
CPT/HCPCS: 80307; 87081

== ENCOUNTER 2019-07-07 07:18 | Outpatient (CLI) | payer MEDICAID, SELFPAY ==
[2019-07-07 15:32] LABS: ROM Plus Negative
== END 2019-07-07 07:38 ==
PROVIDERS: PCP Nurse Practitioner; Visit Provider Obstetrics & Gynecology
DX: O24.410 Gestational diabetes mellitus in pregnancy, diet controlled (principal); Z3A.35 35 weeks gestation of pregnancy
CPT/HCPCS: 84112; 59025

== ENCOUNTER 2019-07-11 11:09 | Outpatient (CLI) | payer MEDICAID, SELFPAY | END 2019-07-11 11:29 | PROVIDERS: PCP Nurse Practitioner; Visit Provider Obstetrics & Gynecology Gynecology | DX: O24.410 Gestational diabetes mellitus in pregnancy, diet controlled (principal); Z3A.35 35 weeks gestation of pregnancy | CPT/HCPCS: 99211; 59025 ==

== ENCOUNTER 2019-07-14 07:22 | Outpatient (CLI) | payer MEDICAID, SELFPAY | END 2019-07-14 07:42 | PROVIDERS: PCP Nurse Practitioner; Visit Provider Obstetrics & Gynecology | DX: O24.410 Gestational diabetes mellitus in pregnancy, diet controlled (principal); Z3A.37 37 weeks gestation of pregnancy | CPT/HCPCS: 59025 ==

== ENCOUNTER 2019-07-16 16:13 | Observation (INO) | payer MEDICAID, SELFPAY ==
--- NOTE | 2019-07-16 17:47 | NUR.NOTE ---
07/16/2019 17:25 Per MD Patient may go home now or after she eats. Patient choose to go home now. Explained to patient if contractions get stronger or if anything changes to give the MD a call.
== END 2019-07-16 17:35 | disposition home or self-care (01) ==
PROVIDERS: Admitting Provider Obstetrics & Gynecology; PCP Nurse Practitioner; Visit Provider Obstetrics & Gynecology
DX: O47.1 False labor at or after 37 completed weeks of gestation (principal); Z3A.37 37 weeks gestation of pregnancy
CPT/HCPCS: 59025

== ENCOUNTER 2019-07-18 14:00 | Outpatient (CLI) | payer MEDICAID, SELFPAY | END 2019-07-18 14:20 | PROVIDERS: PCP Nurse Practitioner; Visit Provider Obstetrics & Gynecology Gynecology | DX: O24.414 Gestational diabetes mellitus in pregnancy, insulin controlled (principal); Z3A.37 37 weeks gestation of pregnancy | CPT/HCPCS: 59025 ==

== ENCOUNTER 2019-07-21 08:42 | Inpatient (IN) | payer MEDICAID, SELFPAY ==
[2019-07-21 09:15] LABS: HCT 29.7 % (36.0-46.0); HGB 8.9 g/dL (12.0-15.5); Mean Corpuscular Hemoglobin 21.9 pg (27.0-33.0); Mean Platelet Volume 9.9 fL (8.0-11.0); Platelet Count 310 x1000/uL (130-400); RBC 4.06 m/cumm (4.00-5.20); RBC Distribution Width 14.9 % (11.7-14.6)
[2019-07-21] MEDS: Normal Saline Flush 10 ML SYR IVP (09:21)
[2019-07-21 09:29] LABS: Mean Corpuscular Volume 73.2 fL (80-95)
[2019-07-21] MEDS: Lactated Ringers 1,000 ML 125 ML IV ×2 (10:27→18:03)
[2019-07-21] MEDS: Acetaminophen 325 MG TAB 650 MG PO (19:45)
[2019-07-21] MEDS: Ibuprofen 600 MG TAB PO (19:46)
[2019-07-22] MEDS: Ibuprofen 600 MG TAB PO ×2 (05:41→18:43)
[2019-07-22 07:13] LABS: HCT 25.8 % (36.0-46.0); HGB 7.8 g/dL (12.0-15.5); Mean Corp. HGB Concentration 30.2 g/dL (32.0-36.0); Mean Corpuscular Hemoglobin 22.2 pg (27.0-33.0); Mean Corpuscular Volume 73.3 fL (80-95); Mean Platelet Volume 10.4 fL (8.0-11.0); Platelet Count 283 x1000/uL (130-400); RBC 3.52 m/cumm (4.00-5.20); RBC Distribution Width 14.9 % (11.7-14.6); White Blood Cell Count 9.61 k/cumm (4.4-10.8)
[2019-07-22] MEDS: Acetaminophen 325 MG TAB 650 MG PO (11:54)
--- NOTE | 2019-07-23 10:00 | HPE_ITS ---
Date of service: 07/21/19 Time of Service: 09:00 Assessment and Plan Assessment and plan (1) GDM (gestational diabetes mellitus), class A1: Status: Acute (2) Gestational hypertension: Status: Acute Assessment and plan: Plan to proceed with IOL at 38 weeks. Will plan induction with pitocin. GBS is negative. tracing is Category I on admission. History of Present Illness History of Present Illness Chief Complaint: GDM and GHTN Narrative: 23 year old presents for induction of labor secondary to GDM and GHTN. Her blood sugars have been moderately controlled with diet alone during the course of the but she has been inconsistent with returning her blood sugar logs. Blood pressures have always remained in mild range and she has displayed no signs of preeclampsia. Review of Systems All systems reviewed & are unremarkable except as noted in HPI and below PFSH Social History Smoking/Tobacco Use Status: Former Tobacco Use Quit Date: 03/17/18 Alcohol Intake: former Year quit: 2018 Drug use: Never Do you feel safe at home: Yes Do you feel safe in your relationship?: Yes Female Reproductive History Menstrual Age of Menarche: 9 control method: pills History History 6 Para 4 Hx # Term Pregnancies 2 Multiple births 0 Hx # Pregnancies 2 Ectopic pregnancies 0 AB induced 0 Hx Number of Living Children 4 AB spontaneous 1 Past Pregnancies Del. Date GA/Weeks # Outcome Route Wgt Sex Labor Lgth Anesthes ia Location Prov [facility] 05/09/12 38 No Successful vaginal 4 lb 12 oz Male [address] paula 04/28/14 40 No Successful vaginal 8 lb 15 oz Male [address] aguirre 01/22/16 42 No Successful vaginal Female [address] guevara [facility] 03/29/18 31 No Successful vaginal 3 lb Male 22 [facility] [place] Date: 05/09/12 On 01/03/19 @ 15:34 [place]DY [place] [facility] [place], breathing tube. Delivery Date: 04/28/14 On 01/03/19 @ 15:37 PREM LUNDY iol for polyhydramnious. Delivery Date: 01/22/16 On 01/03/19 @ 15:40 PREM LUNDY none Delivery Date: 03/29/18 On 01/03/19 @ 15:43 [place] [facility] [place] 3 days statred iol on day 4 delivered day 5. Meds Home Medications and Allergies Home Medications Medication Instructions Recorded Confirmed Type diphenhydramine HCl 25 mg capsule 25 mg PO QHS PRN 01/03/19 07/21/19 History pediatric iqrlzxrj-[id number]-[id number] 2 tab PO DAILY tab 01/03/19 07/21/19 History lancets #100 each 02/21/19 07/18/19 Rx citalopram 20 mg tablet 20 mg PO DAILY #30 tab 05/02/19 07/21/19 Rx pen needle, diabetic 33 gauge x #100 each 05/31/19 07/18/19 Rx /16 acetaminophen 500 mg tablet 500 mg PO Q6H PRN 07/11/19 07/21/19 History calcium carbonate 200 mg calcium 200 mg PO BID 07/11/19 07/21/19 History (500 mg) chewable tablet Allergies Allergy/AdvReac Type Severity Reaction Status Date / Time cefaclor Allergy Unknown Verified 07/11/19 14:22 Cephalosporins Allergy Unknown Verified 07/11/19 14:22 fluoxetine [From Prozac] AdvReac Severe Psychosis Verified 07/11/19 14:22 sertraline [From Zoloft] AdvReac Severe suicidal, Verified 07/11/19 14:22 homasidal lamotrigine AdvReac Intermediate blisters Verified 07/11/19 14:22 on throat and tongue amphetamine sulfate AdvReac Tachycardia Verified 07/11/19 14:22 [From Adderall] atomoxetine HCl AdvReac Tachycardia Verified 07/11/19 14:22 [From Strattera] dextroamphetamine AdvReac Tachycardia Verified 07/11/19 14:22 [From Adderall] hydromorphone AdvReac Verified 07/11/19 14:22 permethrin AdvReac Skin Rash Verified 07/11/19 14:22 [From RID Complete [place]ice [place] Kit] piperonyl butoxide AdvReac Skin Rash Verified 07/11/19 14:22 [From RID Complete [place]ice [place] Kit] pyrethrins AdvReac Skin Rash Verified 07/11/19 14:22 [From RID Complete [place]ice [place] Kit] Results Labs Result diagrams: 07/22/19 06:14
--- NOTE | 2019-07-23 10:04 | W.PM.PROGNOT ---
Date of Service Date of service: 07/22/19 Time of Service: 10:00 Assessment and Plan Assessment and plan (1) (normal spontaneous vaginal delivery): Status: Acute Assessment and plan: Doing well. Uncomplicated course. Anticipate discharge home tomorrow. Subjective Subjective Interval history since last seen: Doing well. No problems or concerns. Minimal lochia. Objective Objective Clinical Data: Vital Signs Pain Level 6 07/22/19 18:43 Intake & Output 07/22/19 07/22/19 07/23/19 11:59 23:59 12:59 Intake Total 1000 / 1000 Balance 1000 / 1000 Intake: IV 1000 / 1000 Laboratory Results WBC 9.61 k/cumm (4.4-10.8) 07/22/19 06:14 RBC 3.52 m/cumm (4.00-5.20) L 07/22/19 06:14 Hgb 7.8 g/dL (12.0-15.5) L 07/22/19 06:14 Hct 25.8 % (36.0-46.0) L 07/22/19 06:14 MCV 73.3 fL (80-95) L 07/22/19 06:14 MCH 22.2 pg (27.0-33.0) L 07/22/19 06:14 MCHC 30.2 g/dL (32.0-36.0) L 07/22/19 06:14 RDW 14.9 % (11.7-14.6) H 07/22/19 06:14 Plt Count 283 x1000/uL (130-400) 07/22/19 06:14 MPV 10.4 fL (8.0-11.0) 07/22/19 06:14 Patient ABO/Rh A Positive 07/21/19 09:05 Antibody Screen Negative 07/21/19 09:05
--- NOTE | 2019-07-23 10:15 | W.PM.PROGNOT ---
Date of Service Date of service: 07/23/19 Time of Service: 10:16 Assessment and Plan Assessment and plan (1) (normal spontaneous vaginal delivery): Status: Acute Assessment and plan: Plan for discharge home today. Subjective Subjective Interval history since last seen: No problems overnight. Doing well. Desires discharge home. Objective Objective Clinical Data: Vital Signs Pain Level 6 07/22/19 18:43 Intake & Output 07/22/19 07/22/19 07/23/19 11:59 23:59 12:59 Intake Total 1000 / 1000 Balance 1000 / 1000 Intake: IV 1000 / 1000 Laboratory Results WBC 9.61 k/cumm (4.4-10.8) 07/22/19 06:14 RBC 3.52 m/cumm (4.00-5.20) L 07/22/19 06:14 Hgb 7.8 g/dL (12.0-15.5) L 07/22/19 06:14 Hct 25.8 % (36.0-46.0) L 07/22/19 06:14 MCV 73.3 fL (80-95) L 07/22/19 06:14 MCH 22.2 pg (27.0-33.0) L 07/22/19 06:14 MCHC 30.2 g/dL (32.0-36.0) L 07/22/19 06:14 RDW 14.9 % (11.7-14.6) H 07/22/19 06:14 Plt Count 283 x1000/uL (130-400) 07/22/19 06:14 MPV 10.4 fL (8.0-11.0) 07/22/19 06:14 Patient ABO/Rh A Positive 07/21/19 09:05 Antibody Screen Negative 07/21/19 09:05
[2019-07-23] MEDS: Ibuprofen 600 MG TAB PO (12:53)
== END 2019-07-23 14:10 | disposition home or self-care (01) | DRG 807 ==
PROVIDERS: Admitting Provider Obstetrics & Gynecology; PCP Nurse Practitioner; Visit Provider Obstetrics & Gynecology
DX: O24.410 Gestational diabetes mellitus in pregnancy, diet controlled (principal); Z37.0 Single live birth; O13.3 Gestational [pregnancy-induced] hypertension without significant proteinuria, third trimester; Z3A.38 38 weeks gestation of pregnancy; Z67.10 Type A blood, Rh positive
CPT/HCPCS: 36415; 85027; 86850; 86900; 86901; 99223; 99233; J3490

== ENCOUNTER 2019-09-11 11:19 | Emergency (ER) | payer MEDICAID, SELFPAY ==
[2019-09-11 11:25] VITALS: BP 121/87; PULSE 86; RESP 14; TEMP 37.1; O2SAT 99
--- NOTE | 2019-09-11 12:45 | W.ED.GENAD ---
Discharge Plan Disposition Patient Disposition: HOME Condition: Stable Discharge Details Chief Complaint: Fever Clinical Impression: Viral illness Primary Care Provider: Glenis Borja ED Provider: Tomeka Crenshaw Home Meds and New Rx's Prescriptions: No Action (DME) Comfort EZ [place] 33 gauge x 5/16 needle See Rx Instructions .ROUTE .MEDSUPPLY Qty: 100 RF: 0 diphenhydramine HCl [Benadryl] 25 mg capsule 25 mg PO QHS PRN (Reason: sleep) RF: 0 (DME) lancets [Accu-Chek Softclix Lancets] Misc See Rx Instructions .ROUTE .MEDSUPPLY Qty: 100 RF: 2 calcium carbonate [Tums] 200 mg calcium (500 mg) tablet,chewable 200 mg PO BID RF: 0 acetaminophen [Tylenol Extra Strength] 500 mg tablet 500 mg PO Q6H PRNRF: 0 norethindrone (contraceptive) [Lorenza] 0.35 mg tablet 0.35 mg PO DAILY Qty: 84 RF: 0 citalopram 40 mg tablet 40 mg PO DAILY Qty: 90 RF: 4 Discharge Instructions Instructions: Viral Syndrome (ED) Additional Instructions: Drink plenty of fluids. Rest activities as tolerated. Motrin or Tylenol for fever if needed. Have reevaluation of fever last greater than 3 to 5 days. Have Covid testing in the tent as discussed. After you are discharged from the emergency room please go to your car, drive up to the tent outdoors, you will have your Covid swabs done at that time. Test will take approximately 2 to 4 days to return. Please convalescent home until you are Covid swabs have returned. Wash hands frequently. Wash commonly touched household items. For any difficulty breathing of shortness of breath or wheezing, worsening symptoms, signs of dehydration or alarming concerns have immediate reevaluation in the emergency room as discussed. Recheck with PCP for persistence of symptoms not improving as expected. Medical Decision Making Is a 23-year-old patient presenting for low-grade fever of 99 noted this morning. Patient is presenting to the emergency room to have her 1-year-old child evaluated for temperatures of [id number] which began in the last 24 hours. Patient otherwise is feeling well. She is eating and drinking without difficulty. Patient reports mild vague nausea. She has been able to eat and drink. Denies any abdominal pain. Denies chest pain or difficulty breathing shortness of breath or wheezing. Patient denies any cough, nasal congestion, ear pain. Denies sore throat or voice change. Patient denies dysuria, urgency or frequency. Has no vaginal discharge or bleeding. Patient is 2 months . Patient denies taking any medications this morning. Patient's initial vital signs are reviewed and normal. Patient is currently afebrile. Patient does feel well hydrated. Patient does live with her parents whom both are essential workers, father works in [employer]. Otherwise patient has not been working. Only ill exposure is her son. Patient has no other concerns or complaints at this time. Discussed Covid testing. Patient consents to Covid testing at this time. This is a concern. Patient clearly is in no distress at this time. nontoxic appearing. Patient has a benign physical exam. No obvious source of infection identified. Again patient is afebrile at this time. Signs physical exam exhibiting viral symptoms. We will plan to have Covid test in the tent. Patient advised to observe for any signs of infection. Otherwise advised to stay well-hydrated. Monitor fevers and any developing symptoms. Patient encouraged to have reevaluation in the emergency room for any significant progression of her symptoms or emergent concerns. Otherwise encouraged follow-up with PCP if needed. Patient reports her understanding and agrees with this plan of care. HPI General Date/Time Provider Initiated Documentation: 09/11/19 11:51. HPI Narrative: This is a 23-year-old patient presenting to the emergency room for complaints of fever. Patient reports temperature of 99 at home today. Patient presents to the emergency room with her 1-1/2-year-old child whose had a fevers of 102-103 for the last 24 hours. Patient has no complaints of nasal congestion, sore throat or cough. Denies headache or dizziness. Denies abdominal pain. Denies dysuria, urgency or frequency. Denies vaginal bleeding. Denies discharge. Patient did report mild nausea, denies vomiting. Patient reports eating and drink without difficulty. Patient denies shortness of breath, chest pain, increased respiratory effort or cough. Patient denies rashes. Denies any change in energy. Patient son is only ill contact. Related Data Home Medications Medication Instructions Recorded Confirmed diphenhydramine HCl 25 mg capsule 25 mg PO QHS PRN 01/03/19 09/11/19 lancets #100 each 02/21/19 07/18/19 pen needle, diabetic 33 gauge x #100 each 05/31/19 07/18/1909/29 acetaminophen 500 mg tablet 500 mg PO Q6H PRN 07/11/19 09/11/19 calcium carbonate 200 mg calcium 200 mg PO BID 07/11/19 09/11/19 (500 mg) chewable tablet norethindrone (contraceptive) 0.35 0.35 mg PO DAILY #84 tab 08/18/19 09/11/19 mg tablet citalopram 40 mg tablet 40 mg PO DAILY #90 tab 09/07/19 09/11/19 Previous Rx's Medication Instructions Recorded lancets #100 each 02/21/19 pen needle, diabetic 33 gauge x #100 each 05/31/1909/29 norethindrone (contraceptive) 0.35 0.35 mg PO DAILY #84 tab 08/18/19 mg tablet citalopram 40 mg tablet 40 mg PO DAILY #90 tab 09/07/19 Allergies Allergy/AdvReac Type Severity Reaction Status Date / Time cefaclor Allergy Unknown Verified 09/11/19 11:47 Cephalosporins Allergy Unknown Verified 09/11/19 11:47 fluoxetine [From Prozac] AdvReac Severe Psychosis Verified 09/11/19 11:47 sertraline [From Zoloft] AdvReac Severe suicidal, Verified 09/11/19 11:47 homasidal lamotrigine AdvReac Intermediate blisters Verified 09/11/19 11:47 on throat and tongue amphetamine sulfate AdvReac Tachycardia Verified 09/11/19 11:47 [From Adderall] atomoxetine HCl AdvReac Tachycardia Verified 09/11/19 11:47 [From Strattera] dextroamphetamine AdvReac Tachycardia Verified 09/11/19 11:47 [From Adderall] hydromorphone AdvReac Verified 09/11/19 11:47 permethrin AdvReac Skin Rash Verified 09/11/19 11:47 [From RID Complete Lice [place] Kit] piperonyl butoxide AdvReac Skin Rash Verified 09/11/19 11:47 [From RID Complete Lice [place] Kit] pyrethrins AdvReac Skin Rash Verified 09/11/19 11:47 [From RID Complete Lice [place] Kit] General Stated Complaint: Fever SHARRI: 4 Review of Systems All systems reviewed & are unremarkable except as noted in HPI and below Constitutional Constitutional: Denies chills, Denies fatigue, Reports fever(s) (99 measured), Denies headache(s) and Denies malaise ENT Ears, Nose, Mouth, and Throat: Denies dizziness, Denies headache(s), Denies nasal obstruction, Denies sinus pain, Denies sinus pressure and Denies sore throat Cardiovascular Cardiovascular: Denies dyspnea Respiratory Respiratory: Denies chest congestion, Denies cough, Denies dyspnea and Denies wheezing Gastrointestinal Gastrointestinal: Denies abdominal pain, Denies cramping, Denies diarrhea, Reports nausea and Denies vomiting Genitourinary Genitourinary: Denies hematuria, Denies difficulty voiding, Denies dysuria, Denies urinary hesitancy and Denies urinary urgency Musculoskeletal Musculoskeletal: Denies arthralgias Integumentary/Breasts Skin/Breast: Denies rash Neurologic Neurologic: Denies dizziness and Denies headache(s) Endocrine Endocrine: Denies fatigue Allergic/Immunologic Allergic/Immunologic: Denies wheezing PFSH Medical History Contraception (Acute) 08/17/19.Pt's spouse s/p vasectomy. POPs while and until azospermia confirmed. Major depressive disorder, recurrent, unspecified (Acute) (Acute) Surgical History History of carpal tunnel surgery of right wrist (Acute) History of carpal tunnel surgery of right wrist (Acute) Social History Smoking/Tobacco Use Status: Former Tobacco Use Quit Date: 03/17/18 Alcohol Intake: former Year quit: 2019 Drug use: Never Do you feel safe at home: Yes Do you feel safe in your relationship?: Yes Female Reproductive History Menstrual Age of Menarche: 9 control method: pills History History 6 Para 5 Hx # Term Pregnancies 4 Multiple births 0 Hx # Pregnancies 2 Ectopic pregnancies 0 AB induced 0 Hx Number of Living Children 5 AB spontaneous 1 Past Pregnancies Del. Date GA/Weeks # Outcome Route Wgt Sex Labor Lgth Anesthesia Location Prov Complic 05/09/12 38 No Successful vaginal 2.155 kg Male [address] paula 04/28/14 40 No Successful vaginal 4.054 kg Male [address] aguirre 01/22/16 42 No Successful vaginal Female [address] guevara @[place] 03/29/18 31 No Successful vaginal 1.361 kg Male [place] [facility] 38 No Successful vaginal 3.629 kg Female [address] Hernadez Delivery Date: 05/09/12 [place] [facility] [place], breathing tube. LELOLION,ANEA Delivery Date: 04/28/14 iol for polyhydramnious. LELONG,ANEA Delivery Date: 01/22/16 none LELONG,ANEA Delivery Date: 03/29/18 [place] [facility] [place] 3 days statred iol on day 4 delivered day 5. KAMRON,ANEA Delivery Date: 07/21/19 IOL secondary to diabetes. Apgars 5/8. named Yasmeen. Digna Jolley Exam Narrative Exam Narrative: CONST: Healthy appearing patient, in no acute distress. Well hydrated. Alert and oriented. HENMT: Head nomocephalic, normal to inspection. Atraumatic. Hearing grossly normal. External ear canal no erythema or swelling. TM impacted by cerumen bilaterally. Nose normal to inspection. No rhinnorhea. Normal facial exam. Oral mucosa normal. Tounge normal. Dentition normal. Normal posterior oropharynx. Uvula midline. EYES: General normal appearance. Alignment normal. Eyelids normal. Conjunctiva normal. Sclera normal. PERRL. NECK: Normal visual inspection. FROM. No lymphadenopathy. Trachea midline. No Midline tenderness. CHEST: Normal insepection of the chest. RESP: Normal respiratory effort. Speaking full sentences. No cough. No wheezing. No retractions. Clear to auscaltation. Breath sound equal and present bilaterally. CARDIO: No JVD. Normal PMI. Regular Rate. Regular Rhythm. Normal peripheral pulses. GI: Normal inspection of abdomen. No distension. Soft. Nontender. Bowel sounds present in all 4 quadrants. No rebound. No gaurding. MUSCULOSKELETAL: Normal Gait. FROM of all extremities. Back: no CVA tenderness noted bilaterally SKIN: Normal. Dry. No rashes. NEURO: Alert and awake. Speech clear. Course Vital Signs Vital signs: Vital Signs Temperature 37.1 C 09/11/19 11:25 Pulse 86 09/11/19 11:25 Respiratory Rate 14 09/11/19 11:25 Blood Pressure 121/87 09/11/19 11:25 Pulse Oximetry 99 09/11/19 11:25 Temperature 37.1 C 09/11/19 11:25 Temperature Source Skin 09/11/19 11:25 Pulse 86 09/11/19 11:25 Respiratory Rate 14 09/11/19 11:25 Respiratory Effort 09/11/19 11:49 Blood Pressure 121/87 09/11/19 11:25 Blood Pressure Position Sitting 09/11/19 11:25 Pulse Oximetry 99 09/11/19 11:25 Oxygen Delivery Method Room Air 09/11/19 11:25 Oxygen Flow Rate 0 09/11/19 11:25 Pain Level 0 09/11/19 11:25
== END 2019-09-11 12:10 | disposition home or self-care (01) ==
PROVIDERS: Emergency Provider Physician Assistant; PCP Nurse Practitioner
DX: B34.9 Viral infection, unspecified (principal); R50.9 Fever, unspecified
CPT/HCPCS: 99282

== ENCOUNTER 2019-09-11 12:04 | Outpatient (CLI) | payer MEDICAID, SELFPAY ==
[2019-09-11 19:27] LABS: COVID-19 RT-PCR UVMMC Result Negative (Negative)
== END 2019-09-11 12:24 ==
PROVIDERS: PCP Nurse Practitioner; Visit Provider Physician Assistant
DX: Z11.59 Encounter for screening for other viral diseases (principal); R50.9 Fever, unspecified
CPT/HCPCS: 87449; U0003

== ENCOUNTER 2019-11-16 14:20 | Observation (INO) | payer MEDICAID, SELFPAY ==
[2019-11-16 14:25] VITALS: BP 134/83; PULSE 89; TEMP 36.7; O2SAT 97
--- NOTE | 2019-11-16 14:39 | ED.GENADUL_ITS ---
Discharge Plan Disposition Patient Disposition: [facility] INPATIENT Condition: Fair Discharge Details Chief Complaint: PsychEval Clinical Impression: Suicidal ideation Admit Date/Time: 11/16/19 17:23 Admit Provider: Derrick Jung Attending Provider: Derrick Jung Primary Care Provider: Lorrie Wynne ED Provider: Mickie Hernandez Discharge Data Discharge Date/Time-TO BE ENTERED AT DEPARTURE: 11/16/19 18:45 Medical Decision Making <Mana Mcintosh - Last Filed: 11/17/19 09:39> 24-year-old female presents to the ED after being seen for visit with [employer] Dr. Hernadez upstairs, patient is 3 months and reports suicidal thoughts for the last 48 hours. She denies having a plan she states that I want to go to sleep and not wake up, she also states I do not want to be here anymore she does have a history of major depressive disorder and does have a history of suicidal attempt in the past. She takes citalopram at home for antidepressant. She denies taking any extra medications or doing anything in the last 24 to 48 hours to hurt herself. She denies drugs or alcohol. She is breast-feeding at night only. She does have 5 children 2 of which are living with her at her friend's house. There is also department of children and family involved and have recently made an assessment and has determined that there is a safety plan in place for her and her fianc?. She denies any headache, blurry vision, nausea vomiting diarrhea or abdominal pain. Patient at this time is calm and cooperative. 1453: Initial work-up ordered including CBC, CMP urine drug screen, urinalysis, TSH level, mental health evaluation ordered and CPSO. Christina with care management aware of plan for mental health evaluation. 1605: Michelle with [facility] human services at bedside on iPad for patient evaluation and mental health evaluation. Care to be handed off to Mickie OAKLEY pending mental health evaluation and disposition. <ADIN Payne - Last Filed: 11/16/19 18:46> Care transitioned to myself from Anitra Trotter NP with mental health screening pending. Patient is remaining comfortable and agreeable department. She was able to speak with mental health and agreed on inpatient admission for suicidal ideation. Patient is voluntary. She is resting comfortably in the department. Awaiting bed placement. COVID testing ordered. As we are unable to transfer until this has been completed, will consult with hospitalist regarding admission. Pump available for patient to use at her normal time this evening, spoke with OB, hand pump availab.e Consulted with Dr. Harris who agrees to admission for continued evaluation for suicidal ideation. Patient is remained agreeable and comfortable while here. HPI <Mana Mcintosh - Last Filed: 11/17/19 09:39> General Mode of arrival: ambulatory . Date/Time Provider Initiated Documentation: 11/16/19 14:34 . Limitations to Documentation: no limitations . Information obtained by: patient and RN/MD . HPI Narrative: 24-year-old female presents to the ED after being seen for visit with [employer] Dr. Hernadez upstairs, patient is 3 months and reports suicidal thoughts for the last 48 hours. She denies having a plan she states that I want to go to sleep and not wake up, she also states I do not want to be here anymore she does have a history of major depressive disorder and does have a history of suicidal attempt in the past. She takes citalopram at home for antidepressant. She denies taking any extra medications or doing anything in the last 24 to 48 hours to hurt herself. She denies drugs or alcohol. She is breast-feeding at night only. She does have 5 children 2 of which are living with her at her friend's house. There is also department of children and family involved and have recently made an assessment and has determined that there is a safety plan in place for her and her fianc?. She denies any headache, blurry vision, nausea vomiting diarrhea or abdominal pain. Related Data Home Medications Medication Instructions Recorded Confirmed diphenhydramine HCl 25 mg capsule 25 mg PO QHS PRN 01/03/19 11/16/19 acetaminophen 500 mg tablet 500 mg PO Q6H PRN 07/11/19 11/16/19 norethindrone (contraceptive) 0.35 0.35 mg PO DAILY #84 tab 08/18/19 11/16/19 mg tablet citalopram 40 mg tablet 40 mg PO DAILY #90 tab 09/07/19 11/16/19 Previous Rx's Medication Instructions Recorded norethindrone (contraceptive) 0.35 0.35 mg PO DAILY #84 tab 08/18/19 mg tablet citalopram 40 mg tablet 40 mg PO DAILY #90 tab 09/07/19 Allergies Allergy/AdvReac Type Severity Reaction Status Date / Time cefaclor Allergy Unknown Verified 11/16/19 14:28 Cephalosporins Allergy Unknown Verified 11/16/19 14:28 fluoxetine [From Prozac] AdvReac Severe Psychosis Verified 11/16/19 14:28 sertraline [From Zoloft] AdvReac Severe suicidal, Verified 11/16/19 14:28 homasidal lamotrigine AdvReac Intermediate blisters Verified 11/16/19 14:28 on throat and tongue amphetamine sulfate AdvReac Tachycardia Verified 11/16/19 14:28 [From Adderall] atomoxetine HCl AdvReac Tachycardia Verified 11/16/19 14:28 [From Strattera] dextroamphetamine AdvReac Tachycardia Verified 11/16/19 14:28 [From Adderall] hydromorphone AdvReac Verified 11/16/19 14:28 permethrin AdvReac Skin Rash Verified 11/16/19 14:28 [From RID Complete Lice [place] Kit] piperonyl butoxide AdvReac Skin Rash Verified 11/16/19 14:28 [From RID Complete Lice [place] Kit] pyrethrins AdvReac Skin Rash Verified 11/16/19 14:28 [From RID Complete Lice [place] Kit] General Stated Complaint: PsychEval SHARRI: 2 Review of Systems <Manadamien Mcintosh - Last Filed: 11/17/19 09:39> Narrative: Constitutional: Negative for weight loss, alert and oriented, well groomed, normal body habitus, appears comfortable. HEENT: Denies trauma, headaches, blurry vision, nasal discharge, sore throat, trouble swallowing. Chest: Denies chest pain, palpitations, irregular rhythm, hypertension. Respiratory: Denies Shortness of breath, cough, hemoptysis. GI: Denies abdominal pain, nausea, vomiting, diarrhea, constipation. : Denies dysuria, hematuria, flank pain, rectal bleeding. Neuro: Denies dizziness, blurry vision, weakness, syncope, headache or facial numbness. Hematologic: Denies easy bruising, intolerance to heat or cold, hair loss. Psychiatric Psychiatric: Reports abnormal sleep pattern, Reports depression, Denies homicidal ideation and Reports suicidal ideation PFSH <Mana Mcintosh - Last Filed: 11/17/19 09:39> Medical History Contraception (Acute) 08/17/19.Pt's spouse s/p vasectomy. POPs while and until azospermia confirmed. Major depressive disorder, recurrent, unspecified (Acute) (Acute) Surgical History History of carpal tunnel surgery of right wrist (Acute) History of carpal tunnel surgery of right wrist (Acute) Family History Father Heart disease of h/a 2`to self mismanagement of his cardiac meds. Hodgkin disease Mother Stroke Social History Smoking/Tobacco Use Status: Former Tobacco Use Quit Date: 03/17/18 Alcohol Intake: former Year quit: 2018 Drug use: Never Substance use type: does not use Current gender identity: female Do you feel safe at home: Yes Do you feel safe in your relationship?: Yes Female Reproductive History Menstrual Age of Menarche: 9 control method: pills History History 6 Para 5 Hx # Term Pregnancies 4 Multiple births 0 Hx # Pregnancies 2 Ectopic pregnancies 0 AB induced 0 Hx Number of Living Children 5 AB spontaneous 1 Past Pregnancies Del. Date GA/Weeks # Outcome Route Wgt Sex Labor Lgth Anesthes ia Location Prov [facility] 05/09/12 38 No Successful vaginal 2.155 kg Male 5 hr vinay paula 04/28/14 40 No Successful vaginal 4.054 kg Male 7 hrs vinay aguirre 01/22/16 42 No Successful vaginal Female [address] guevara @[place] 03/29/18 31 No Successful vaginal 1.361 kg Male 24 d nathalie 07/21/19 38 No Successful vaginal 3.629 kg Female [address] Hernadez Delivery Date: 05/09/12 breech sent to [facility] [place], low platelets, breathing tube. LELONG,ANEA Delivery Date: 04/28/14 iol for polyhydramnious. LELONG,ANEA Delivery Date: 01/22/16 none LELONG,ANEA Delivery Date: 03/29/18 pprom sent to [facility] [place], in house x 3 days statred iol on day 4 delivered day 5. PREM LUNDY Delivery Date: 07/21/19 IOL secondary to diabetes. Apgars 5/8. Infant named Gaby Jolleye Exam <Mana Mcintosh [facility] Filed: 11/17/19 09:39> Narrative Exam Narrative: Constitutional: Alert and oriented x3. Appears stated age. Overweight body habitus. Head: Normocephalic, no trauma. Eyes: Pupils PERRLA, Red reflex noted, EOM's intact. Eyelids symmetrical without lesions, discharge, or swelling. ENT: Bilateral TM's WNL, External ear normal to inspection, no mastoid TTP, swelling, or erythema, Nasal turbinates WNL, no nasal discharge. Normal dentition, Posterior pharynx WNL, no exudate. Chest: RRR, Normal S1, S2, distal pulses intact. Resp: Lungs clear to auscultation bilaterally, no wheezes, rales, or rhonchi. Musculoskeletal: Normal gait, 5/5 strength to all four extremities. Skin: No suspicious rashes or lesions. Capillary refill less than 2 sec. Neurologic: Cranial nerves II-XII intact. Alert and oriented x 3. DTR's intact. Hematologic/Lymphatic: No ecchymosis, no lymphadenopathy. Psych Appearance: well kempt Speech and Movement: delayed speech (Slowed) Mood: labile mood Affect: sad and blunted Attitude: guarded and avoids eye contact Thought Process: normal Thought Content: suicidality Insight: poor Judgment: poor Course <Mana Mcintosh Praveen Filed: 11/17/19 09:39> Vital Signs Vital signs: Vital Signs Pulse 89 11/16/19 14:25 Blood Pressure 134/83 11/16/19 14:25 Pulse Oximetry 97 11/16/19 14:25 Pulse 89 11/16/19 14:25 Respiratory Effort Non-Labored 11/16/19 14:34 Blood Pressure 134/83 11/16/19 14:25 Blood Pressure Position Sitting 11/16/19 14:25 Pulse Oximetry 97 11/16/19 14:25 Oxygen Delivery Method Room Air 11/16/19 14:25 Oxygen Flow Rate 0 11/16/19 14:25 Sign Out <Mana Mcintosh - Last Filed: 11/17/19 09:39> Sign Out Data: Sign Out Comment: Pending mental health evaluation and disposition. Last updated by Mana Mcintosh at 11/16/19 16:07
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
[2019-11-16 15:03] LABS: Abs Immature Grans 0.02 k/cumm (0.0-0.09); Absolute Basophil Count 0.02 k/cumm (0.0-0.2); Absolute Eosinophil Count 0.03 k/cumm (0.0-0.7); Absolute Lymphocyte Count 2.43 k/cumm (1.2-3.4); Absolute Monocyte Count 0.64 k/cumm (0.11-0.7); Absolute Neutrophil Count 6.51 k/cumm (1.2-6.7); Basophils % 0.2; Eosinophils % 0.3; HCT 38.9 % (36.0-46.0); Immature Grans % 0.2 %; Lymphocytes % 25.2; Mean Corp. HGB Concentration 30.8 g/dL (32.0-36.0); Mean Corpuscular Hemoglobin 22.5 pg (27.0-33.0); Mean Platelet Volume 9.4 fL (8.0-11.0); Monocytes % 6.6; Neutrophils % 67.5; Platelet Count 332 x1000/uL (130-400); RBC 5.33 m/cumm (4.00-5.20); RBC Distribution Width 14.8 % (11.7-14.6); White Blood Cell Count 9.65 k/cumm (4.4-10.8)
[2019-11-16 15:21] LABS: ALT 54 U/L (14-59); AST 44 U/L (15-37); Albumin 3.8 g/dL (3.4-5.0); Alkaline Phosphatase 106 U/L (46-116); BUN 11 mg/dL (7-18); Bilirubin, Total 0.4 mg/dL (0.2-1.0); CREATININE 0.83 mg/dL (0.55-1.02); Chloride 103 mmol/L (98-107); Glucose 124 mg/dL (74-106); Potassium 3.9 mmol/L (3.5-5.1); Sodium 139 mmol/L (136-145); TSH 1.09 uIU/mL (0.36-3.74); Total Protein 7.9 g/dL (6.4-8.2)
[2019-11-16 15:25] LABS: *AMPHETAMINES SCREEN URINE Negative (Negative); *BARBITURATES SCREEN URINE Negative (Negative); *BENZODIAZEPINES SCREEN URINE Negative (Negative); Cannabinoids THC Negative (Negative); Cocaine Screen,Urine Negative (Negative); METHADONE URINE SCREEN Negative (Negative); OPIATES URINE SCREEN Negative (Negative)
[2019-11-16 15:30] LABS: Tricyclic Antidepressants Negative (Negative)
[2019-11-16 15:36] LABS: Bilirubin Negative (Negative); Blood Negative (Negative); Clarity Cloudy (Clear); Glucose Negative (Negative); Ketones Negative (Negative); Leukocyte Esterase Negative (Negative); Nitrite Negative (Negative); Specific Gravity >= 1.030 (1.005-1.025)
[2019-11-16 15:52] LABS: Diff Comment Diff Reviewed; Microcytosis 3+
[2019-11-16 15:53] LABS: Hypochromasia 1+
--- NOTE | 2019-11-16 16:23 | PDOC.MHCN ---
Date of service: 11/16/19 Time of Service: 16:23 Mental Health Crisis Note Presenting Issue How did you arrive at the ED and why did you come: Marva arrived to the ER via her [facility]ard[facility]. She came due to concerns of depression and SI. Precipitating Factors T denied SI however was asked about a report of thoughts of to overdose on her Rx's. She admits she has thought that and states she does not think she would do it though as she loves her children too much. Disposition BEHAVIOR: Marva is cooperative and engaged in the interview. She is showing good insight and judgment. She asks clarifying questions and seems to really want to feel better. EYE CONTACT: T's eye contact is consistent and good. MOOD: T presents as sad and at times weepy. AFFECT: Marva's affect is flat most of the time with some moments of expressions. APPETITE: T reported that she is not eating. SLEEP(trouble falling/staying asleep: Marva reports that she is up when she is with her children but when they are away she is sleeping day and night. Plan Marva agrees to a voluntary admission. This will be her first ever psychiatric admission. She has a psychiatric evaluation scheduled through her PCP office for December 06 at 10am. We discussed this would be a way for her to get started on something now and then at that appointment if it needed to be adjusted Temi could do that.
[2019-11-16 18:41] VITALS: BP 134/83; PULSE 89; TEMP 36.7; O2SAT 97
[2019-11-16 18:57] VITALS: BP 111/73; PULSE 75; RESP 16; TEMP 35.8; O2SAT 97
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
[2019-11-17 07:58] VITALS: BP 104/67; PULSE 65; RESP 16; TEMP 36.4; O2SAT 96
[2019-11-17] MEDS: Citalopram 20 MG TAB 40 MG PO (09:04)
--- NOTE | 2019-11-17 09:21 | PDOC.CMIN ---
- If Service Date Differs Date of service: 11/17/19 Time of Service: 09:21 Care Management Initial Assess REASON FOR HOSPITALIZATION:: SI PAST MEDICAL HISTORY/PAST SURGICAL HISTORY:: Medical History . Contraception (Acute). 08/17/19.Pt's spouse s/p vasectomy. POPs while and until azospermia confirmed. Major depressive disorder, recurrent, unspecified (Acute). (Acute). Surgical History . History of carpal tunnel surgery of right wrist (Acute). History of carpal tunnel surgery of right wrist (Acute) PREVIOUS FUNCTIONAL STATUS/SOCIAL/FAMILY SUPPORTS:: Pavel lives in an apartmwent in [facility] [place] [facility] with her girlfriend and her girlfriend's mother. Until recently she was with Gopal Matson, her fiancee. Pavel is 3 months post and Gopal is the father of her baby. Pavel has several other children, some of which are in DCF custody. She is independent at baseline. CURRENT FUNCTIONAL STATUS:: Pavel was lying in bed asleep when CM met with her. She shared with CM and Gissel from [facility] that she is always tired and has been depressed for quite some time. She stated that she has been having suicidal thoughts for the past couple of days but is not currently feeling suicidal, just tired. Pavel confirmed that she is still agreeable to seeking voluntary placement for treatment of her depression . ADVANCE DIRECTIVES:: none on file Has patient been provided with info about the portal/API?: No Did the patient sign up for the portal?: No CODE STATUS:: Full Code INSURANCE COVERAGE / FINANCIAL ISSUES:: Medicaid PRIMARY CARE PHYSICIAN:: Lorrie Wynne POTENTIAL DISCHARGE NEEDS:: Pavel is seeking voluntary placement for psychiatric stabilization. TRANSPORTATION:: Pavel will be transported by sherrifs or by ambulance if sherrif unavailable PLAN:: Pavel is awaiting voluntary placement in a psychiatric facility. CM will continue to support patient, family and discharge needs.
--- NOTE | 2019-11-17 09:42 | W.PM.PROGNOT ---
Date of Service Date of service: 11/17/19 Time of Service: 09:42 Assessment and Plan Assessment and plan (1) Suicidal ideation: Start date: 11/17/19 Start time: 09:43 Status: Acute Assessment and plan: At this time she denies SI/HI. She states she has had depression in the past. 1:1 observer present. Awaiting placement she is voluntary at this time. (2) Major depressive disorder, recurrent, unspecified: Start date: 11/17/19 Start time: 10:09 Status: Acute Assessment and plan: Continue current home dose of citalopram. Above case discussed with Dr. Stinson who is in agreement. Qualifiers: Active/Remission status: currently active Major depression episode severity: severe Psychotic features: without psychotic features Qualified Code(s): F33.2 - Major depressive disorder, recurrent severe without psychotic features Subjective Subjective Patient reports: other Interval history since last seen: Feeling tired today, no c/o pain, denies SI/HI. Exam Narrative Exam Narrative: Morbidly obese female who is alert and oriented person place time circumstance. She does not appear to be tearful. She answers questions directly but avoids making eye contact. HEENT unremarkable. Neck is obese supple nontender with normal range of motion. Normal carotid pulses. No JVD no lymphadenopathy and no thyromegaly. Lungs are clear to auscultation. Heart regular rate and rhythm without murmur rub or gallop. Abdomen is obese soft nontender NABS no palpable masses no bruits. Extremities with normal range of motion and strength no peripheral edema nor cyanosis and normal pulses. Psychiatric: She is alert and oriented person place time circumstance. She is not tearful. She tends to avoid eye contact but answers questions completely and directly. Objective Objective Clinical Data: Abnormal lab results 11/16/19 11/16/19 11/16/19 Range/Units 14:30 14:30 14:45 RBC 5.33 H (4.00-5.20) m/cumm MCV 73.0 L (80-95) fL MCH 22.5 L (27.0-33.0) pg MCHC 30.8 L (32.0-36.0) g/dL RDW 14.8 H (11.7-14.6) % Glucose 124 H (74-106) mg/dL AST 44 H (15-37) U/L Ur Specific Florence >= 1.030 H (1.005-1.025) Urine Urobilinogen 1.0 H (Up TO 0.2) EU/dL Vital Signs Temperature 36.4 C L 11/17/19 07:58 Temperature Source Temporal Artery Scan 11/17/19 07:58 Pulse 65 11/17/19 07:58 Pulse Rhythm Regular 11/17/19 04:12 Respiratory Rate 16 11/17/19 07:58 Respiratory Effort Non-Labored 11/17/19 04:12 Respiratory Depth Normal 11/17/19 04:12 Respiratory Pattern Normal 11/17/19 04:12 Blood Pressure 104/67 11/17/19 07:58 Blood Pressure Position Sitting 11/16/19 14:25 Pulse Oximetry 96 11/17/19 07:58 Oxygen Delivery Method Room Air 11/17/19 07:58 Oxygen Flow Rate 0 11/17/19 07:58 Pain Level 0 11/16/19 19:06 Intake & Output 11/16/19 11/16/19 11/17/19 11:59 23:59 11:59 Intake Total 240 / 240 Balance 240 / 240 Weight 108.862 kg Intake: Oral 240 / 240 Other: Urine Appearance Clear Laboratory Results WBC 9.65 k/cumm (4.4-10.8) 11/16/19 14:30 RBC 5.33 m/cumm (4.00-5.20) H 11/16/19 14:30 Hgb 12.0 g/dL (12.0-15.5) 11/16/19 14:30 Hct 38.9 % (36.0-46.0) 11/16/19 14:30 MCV 73.0 fL (80-95) L 11/16/19 14:30 MCH 22.5 pg (27.0-33.0) L 11/16/19 14:30 MCHC 30.8 g/dL (32.0-36.0) L 11/16/19 14:30 RDW 14.8 % (11.7-14.6) H 11/16/19 14:30 Plt Count 332 x1000/uL (130-400) 11/16/19 14:30 MPV 9.4 fL (8.0-11.0) 11/16/19 14:30 Immature Gran % 0.2 % 11/16/19 14:30 Neutrophils % 67.5 11/16/19 14:30 Lymphocytes % 25.2 11/16/19 14:30 Monocytes % 6.6 11/16/19 14:30 Eosinophils % 0.3 11/16/19 14:30 Basophils % 0.2 11/16/19 14:30 Absolute Neutrophils 6.51 k/cumm (1.2-6.7) 11/16/19 14:30 Absolute Lymphocytes 2.43 k/cumm (1.2-3.4) 11/16/19 14:30 Absolute Monocytes 0.64 k/cumm (0.11-0.7) 11/16/19 14:30 Absolute Eosinophils 0.03 k/cumm (0.0-0.7) 11/16/19 14:30 Absolute Basophils 0.02 k/cumm (0.0-0.2) 11/16/19 14:30 Differential Comment Diff reviewed 11/16/19 14:30 RBC Morphology See below 11/16/19 14:30 Hypochromasia 1+ 11/16/19 14:30 Microcytosis 3+ 11/16/19 14:30 Sodium 139 mmol/L (136-145) 11/16/19 14:30 Potassium 3.9 mmol/L (3.5-5.1) 11/16/19 14:30 Chloride 103 mmol/L (98-107) 11/16/19 14:30 Carbon Dioxide 26.0 mmol/L (21.0-32.0) 11/16/19 14:30 Anion Gap 10.0 mmol/L (3-11) 11/16/19 14:30 BUN 11 mg/dL (7-18) 11/16/19 14:30 Creatinine 0.83 mg/dL (0.55-1.02) 11/16/19 14:30 Estimated GFR/1.73 m2 >= 60.00 (mL/min/1.73m2) 11/16/19 14:30 Glucose 124 mg/dL (74-106) H 11/16/19 14:30 Calcium 9.0 mg/dL (8.5-10.1) 11/16/19 14:30 Total Bilirubin 0.4 mg/dL (0.2-1.0) 11/16/19 14:30 AST 44 U/L (15-37) H 11/16/19 14:30 ALT 54 U/L (14-59) 11/16/19 14:30 Alkaline Phosphatase 106 U/L (46-116) 11/16/19 14:30 Total Protein 7.9 g/dL (6.4-8.2) 11/16/19 14:30 Albumin 3.8 g/dL (3.4-5.0) 11/16/19 14:30 TSH 1.09 uIU/mL (0.36-3.74) 11/16/19 14:30 Urine Color Yellow (Yellow) 11/16/19 14:45 Urine Clarity Cloudy (Clear) 11/16/19 14:45 Urine pH 6.0 (5-8) 11/16/19 14:45 Ur Specific Florence >= 1.030 (1.005-1.025) H 11/16/19 14:45 Urine Protein Negative mg/dL (Negative) 11/16/19 14:45 Urine Ketones Negative mg/dL (Negative) 11/16/19 14:45 Urine Blood Negative (Negative) 11/16/19 14:45 Urine Nitrite Negative (Negative) 11/16/19 14:45 Urine Bilirubin Negative (Negative) 11/16/19 14:45 Urine Urobilinogen 1.0 EU/dL (Up TO 0.2) H 11/16/19 14:45 Ur Leukocyte Esterase Negative (Negative) 11/16/19 14:45 Urine Glucose Negative mg/dL (Negative) 11/16/19 14:45 Urine Opiates Screen Negative (Negative) 11/16/19 14:45 Urine Methadone Screen Negative (Negative) 11/16/19 14:45 Ur Barbiturates Screen Negative (Negative) 11/16/19 14:45 Ur Tricyclics Screen Negative (Negative) 11/16/19 14:45 Ur Amphetamines Screen Negative (Negative) 11/16/19 14:45 U Benzodiazepines Scrn Negative (Negative) 11/16/19 14:45 Urine Cocaine Screen Negative (Negative) 11/16/19 14:45 Ur THC Screen Negative (Negative) 11/16/19 14:45
[2019-11-17 10:55] LABS: COVID-19 RT-PCR UVMMC Result Negative (Negative)
--- NOTE | 2019-11-17 11:03 | W.INMHPGNOTE ---
Date of service: 11/17/19 Time of Service: 11:03 Mental Health Crisis Note Presenting Issue How did you arrive at the ED and why did you come: Patient arrived at the ED yesterday following Post- appointment with her OBGYN. Client stated to her OBGYN that she was suicidal. Precipitating Factors Patient denies SI and HI at this time, however she states that she has little interest in doing things and feels down and depressed all of the time. Patient scored a 23 on the PHQ-9 rating scale. Disposition BEHAVIOR: When mental health clinician entered room viz zoom with emergency care attendant patient was sleeping. Patient stated to mental health clinician that she was not suicidal at this time she just wanted to get to some sleep. Patient denies previous hospitalizations for mental health. EYE CONTACT: Patient eye contact was good making eye contact with mental health clinician at all times. MOOD: Patient appears depressed, but interacts with mental health clinician during assessment. AFFECT: Flat affect mostly, but able to appropiately show engaging affects as well. APPETITE: Patient states that she ate well last night, even though she did not want to eat. SLEEP(trouble falling/staying asleep: Patient states that they slept ok last night, however patient states that they woke up a lot during the night and all that they want to do right now is go back to sleep. Plan Patient will remain at [facility] transition bed awaiting voluntary hospitalization. manager financial reporting will fax referral paperwork to [facility] where there are open beds.
--- NOTE | 2019-11-17 13:54 | CMPROGNOTE_ITS ---
- If Service Date Differs Date of service: 11/17/19 Time of Service: 13:54 Care Management Progress Note S/O: Pavel has been weepy much of the day. She has been appropriate and cooperative with staff but verbalizes missing her babies. Pavel has spoken to her fimelissae Gopal on the phone several times and appears to become teary and upset each time. When asked about this she notes that she is just upset about not seeing her babies and shares that with him. After discussion with nurse, CPS O, CC and provider, it was decided that Pavel would be allowed to use the hospital tablet to face time her babies. This was done around 1pm and Pavel appeared to engage with her children, smiling and talking animatedly. Her 2 year old son was asleep so she requested another session later in the day. Her safety plan will be updated to allow for face time visits with her young children twice a day, morning and night. Pavel reaffirmed a desire to seek treatment voluntarily. She did express some fear that they might not let her leave on her own. She is prepared to stay a week, but no more she said. CM discussed the fact that she needs to be deemed safe before she can be discharged. She denied having suicidal ideation today to [facility] general ii farmworker RADHA Chauhan and the provider during 3 separate conversations. VOLUNTARY FOR INPATIENT PSYCHIATRIC STABILIZATION. Patient is appropriate in all interactions since arriving at [facility]; Patient has demonstrated appropriate coping and communication skills, has articulated her needs and concerns and is fully engaged during staff interactions. Safety huddle was held with nurse RADHA Howe, asbestos pipe supervisor Narda, LOREN Laboy and CPSO Gretchen and safety plan was updated to allow for Facetime visits and showers. Safety plan has been established with patient, and care team, to adhere to patie nt goals, identify restrictions based on behavioral status, address nutrition, and determine allowed personal belongings, tools for hygiene and personal care. Determine level of activity including ambulation, level of supervision, visitors, and determine privileges based on behaviors and level of engagement by patient. SAFETY PLAN: 1. Will remain on suicide precautions and in paper clothes. 2. Will remain in room under direct supervision of one-on-one staff at all times provided by CPSO, ALLISON, MARINE UNDERWRITER adoption social worker. 3. May have paper cups, plates, finger foods as well as a cardboard spoon with which to eat meals. 4. Follow [facility] Management of the Admitted Behavioral Health Patient policy. 5.May shower with supervision at nursing discretion. 6. No personal belongings. 7. Visitors-No visitors at this time. 8. Activities: Soft tip markers, paper and other activities at nursing discretion. May use television. 9. Bathroom privileges: May use the bathroom in her room without supervision. 10. Phone: Patient is allowed to use an [facility] phone to talk with her boyfriend, Gopal Matson, and her children at nursing discretion. 11. May Facetime with her children twice daily, morning and night, using hospital tablet at discretion of nursing. 12. Due to VOLUNTARY status, if patient wishes to leave [facility], the [facility] general ii farmworker must be contacted to re-evaluate patient prior to patient exiting the building. Patient is currently voluntarily at [facility] and seeking inpatient admission when a bed becomes available. [facility] Frontline Forest Economist will continue seeking placement. Please contact the Dredge Runner Tariff Publishing Agent ([phone]) and [facility] Forest Economist ([phone]) for any needed changes in the Safety Plan. Safety plan has been provided to interdepartmental care team. cc:
--- NOTE | 2019-11-17 14:17 | CMSP_ITS ---
- If Service Date Differs Date of service: 11/17/19 Time of Service: 14:17 Care Management Safety Plan VOLUNTARY FOR INPATIENT PSYCHIATRIC STABILIZATION. Patient is appropriate in all interactions since arriving at [facility]; Patient has demonstrated appropriate coping and communication skills, has articulated her needs and concerns and is fully engaged during staff interactions. Safety huddle was held with nurse RADHA Howe, supervisor instrument maintenance Narda, CC Narda and CPSO Gretchen and safety plan was updated to allow for Facetime visits and showers. Safety plan has been established with patient, and care team, to adhere to patient goals, identify restrictions based on behavioral status, address nutrition, and determine allowed personal belongings, tools for hygiene and personal care. Determine level of activity including ambulation, level of supervision, visitors, and determine privileges based on behaviors and level of engagement by patient. SAFETY PLAN: 1. Will remain on suicide precautions and in paper clothes. 2. Will remain in room under direct supervision of one-on-one staff at all times provided by CPSO, ALLISON, CALIBRATION CHECKER body shop supervisor. 3. May have paper cups, plates, finger foods as well as a cardboard spoon with which to eat meals. 4. Follow [facility] Management of the Admitted Behavioral Health Patient policy. 5.May shower with supervision at nursing discretion. 6. No personal belongings. 7. Visitors-No visitors at this time. 8. Activities: Soft tip markers, paper and other activities at nursing discretion. May use television. 9. Bathroom privileges: May use the bathroom in her room without supervision. 10. Phone: Patient is allowed to use an [facility] phone to talk with her boyfriend, Gopla Matson, and her children at nursing discretion. 11. May Facetime with her children twice daily, morning and night, using hospital tablet at discretion of nursing. 12. Due to VOLUNTARY status, if patient wishes to leave [facility], the [facility] metal casting trades worker must be contacted to re-evaluate patient prior to patient exiting the building. Patient is currently voluntarily at [facility] and seeking inpatient admission when a bed becomes available. [facility] Frontline Stitchdown Toe Former will continue seeking placement. Please contact the Fence Laborer Electronic Typesetting Machine Operator ([phone]) and [facility] Stitchdown Toe Former ([phone]) for any needed changes in the Safety Plan. Safety plan has been provided to interdepartmental care team. cc: cc:
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
== END 2019-11-17 17:30 | disposition short-term general hospital (02) ==
LOC: ER 18:46 → MS 18:56
PROVIDERS: Registered Nurse Emergency; Admitting Provider Internal Medicine; Emergency Provider Physician Assistant; PCP Nurse Practitioner Family; Visit Provider Internal Medicine
DX: F33.2 Major depressive disorder, recurrent severe without psychotic features (principal); Z91.5 Personal history of self-harm; Z79.899 Other long term (current) drug therapy; E66.01 Morbid (severe) obesity due to excess calories; Z68.42 Body mass index [BMI] 45.0-49.9, adult; Z11.59 Encounter for screening for other viral diseases
CPT/HCPCS: 36415; 80053; 80307; 81025; 99219; 99233; 99238; 99285; U0003; 81003; 84443; 85025; 99217; 99283; G0378

== ENCOUNTER 2019-12-29 08:46 | Outpatient (CLI) | payer MEDICAID, SELFPAY ==
[2019-12-30 17:33] LABS: COVID-19 RT-PCR Result NEGATIVE (Negative)
== END 2019-12-29 09:06 ==
PROVIDERS: PCP Nurse Practitioner; Visit Provider Student in an Organized Health Care Education/Training Program
DX: Z11.59 Encounter for screening for other viral diseases (principal); Z01.818 Encounter for other preprocedural examination
CPT/HCPCS: U0003

== ENCOUNTER 2020-01-02 08:53 | Day surgery (SDC) | payer MEDICAID, SELFPAY ==
[2019-12-26] MEDS: ceFAZolin 2 GM/50 ML BAG IVPB (11:20)
[2020-01-02 09:00] VITALS: BP 119/74; PULSE 80; RESP 16; TEMP 36.3; O2SAT 97
[2020-01-02] MEDS: Lactated Ringers 1,000 ML 80 ML IV (09:58)
--- NOTE | 2020-01-02 10:21 | W.PREOPHP ---
Date of service: 01/02/20 Time of Service: 10:21 Assessment and Plan Assessment and plan (1) Left carpal tunnel syndrome: Status: Acute Assessment and plan: Pavel is a 24yo female who has left carpal tunnel syndrome. She has had nonoperative management with continued symptoms and desires to proceed with srugical rlease. I had previously discussed the surgery with her in clinic. I once again reviewed the surgery and the risks. She agreed to proceed. History of Present Illness History of Present Illness Chief Complaint: Left Hand Numbness and tingling Narrative: Pavel is a 24yo female who I have seen for carpal tunnel syndrome on the left side. She has had numbness and tingling into the median nerve distribution of the left hand. She had a previous carpal tunnel release on the right side 10 years ago. She had to postpone her surgical date. She has no new symptoms. She has had no recent sick contacts. She has no fever and no chills. No chest pain or shortness of breath. Review of Systems All systems reviewed & are unremarkable except as noted in HPI and below PFSH Medical History Contraception (Acute) 08/17/19.Pt's spouse s/p vasectomy. POPs while and until azospermia confirmed. Major depressive disorder, recurrent, unspecified (Acute) (Acute) Surgical History History of carpal tunnel surgery of right wrist (Acute) History of carpal tunnel surgery of right wrist (Acute) Family History Father Heart disease of h/a 2`to self mismanagement of his cardiac meds. Hodgkin disease Mother Stroke Social History Smoking/Tobacco Use Status: Former Tobacco Use Quit Date: 03/17/18 Alcohol Intake: former Year quit: 2019 Drug use: Never Substance use type: does not use Current gender identity: female Do you feel safe at home: Yes Do you feel safe in your relationship?: Yes Female Reproductive History Menstrual Age of Menarche: 9 control method: pills History History 6 Para 5 Hx # Term Pregnancies 4 Multiple births 0 Hx # Pregnancies 2 Ectopic pregnancies 0 AB induced 0 Hx Number of Living Children 5 AB spontaneous 1 Past Pregnancies Del. Date GA/Weeks # Outcome Route Wgt Sex Labor Lgth Anesthesia Location Prov Complic 05/09/12 38 No Successful vaginal 2.155 kg Male [address] paula 04/28/14 40 No Successful vaginal 4.054 kg Male [address] aguirre 01/22/16 42 No Successful vaginal Female [address] guevara @[place] 03/29/18 31 No Successful vaginal 1.361 kg Male 24 [facility] [place] 38 No Successful vaginal 3.629 kg Female [address] Hernadez Delivery Date: 05/09/12 [place] [facility] [place], breathing tube. PREM LUNDY Delivery Date: 04/28/14 iol for polyhydramnious. PREM LUNDY Delivery Date: 01/22/16 none [facility] Delivery Date: 03/29/18 [place] [facility] [place] 3 days statred iol on day 4 delivered day 5. PREM LUNDY Delivery Date: 07/21/19 IOL secondary to diabetes. Apgars 5/8. named Yamseen. Digna Jolley Home Medications and Allergies Home Medications Medication Instructions Recorded Confirmed Type diphenhydramine HCl 25 mg capsule 25 mg PO QHS PRN 01/03/19 12/28/19 History acetaminophen 500 mg tablet 500 mg PO Q6H PRN 07/11/19 12/28/19 History norethindrone acetate 1.5 1 tab PO DAILY #105 tab 12/01/19 01/02/20 Rx mg-ethinyl estradiol 30 mcg tablet risperidone 1 mg tablet 1.5 mg PO QHS tab 12/01/19 01/02/20 History vilazodone 10 mg tablet 20 mg PO DAILY 12/01/19 01/02/20 History Allergies Allergy/AdvReac Type Severity Reaction Status Date / Time cefaclor Allergy Unknown Verified 01/02/20 09:05 Cephalosporins Allergy Unknown Verified 01/02/20 09:05 fluoxetine [From Prozac] AdvReac Severe Psychosis Verified 01/02/20 09:05 sertraline [From Zoloft] AdvReac Severe suicidal, Verified 01/02/20 09:05 homasidal lamotrigine AdvReac Intermediate blisters Verified 01/02/20 09:05 on throat and tongue amphetamine sulfate AdvReac Tachycardia Verified 01/02/20 09:05 [From Adderall] atomoxetine HCl AdvReac Tachycardia Verified 01/02/20 09:05 [From Strattera] dextroamphetamine AdvReac Tachycardia Verified 01/02/20 09:05 [From Adderall] hydromorphone AdvReac Verified 01/02/20 09:05 permethrin AdvReac Skin Rash Verified 01/02/20 09:05 [From RID Complete Lice [place] Kit] piperonyl butoxide AdvReac Skin Rash Verified 01/02/20 09:05 [From RID Complete Lice [place] Kit] pyrethrins AdvReac Skin Rash Verified 01/02/20 09:05 [From RID Complete Lice [place] Kit] Exam Const General: cooperative, healthy appearing, comfortable and no acute distress Nutritional Appearance: obese Resp Effort & Inspection: normal respiratory effort Auscultation: clear to auscultation bilaterally Cardio Rate: regular rate Rhythm: regular rhythm Extrem Other: +Travis's and +Phalen compression test. Decreased sensation in the median nerve distribution. Results Last Vital Signs Temp 36.3 C L 01/02/20 09:00 Pulse 80 01/02/20 09:00 Resp 16 01/02/20 09:00 BP 119/74 01/02/20 09:00 Pulse Ox 97 01/02/20 09:00
--- NOTE | 2020-01-02 10:40 | W.PM.DSUDISC ---
Documented by User: ADIN Jamison 01/02/20 10:42 Discharge Plan Disposition Patient Disposition: HOME Condition: Good Discharge Details Reason For Visit: Left ECTR Attending Provider: Lex Hunter Primary Care Provider: Glenis Borja Home Meds and New Rx's Prescriptions: New ibuprofen 600 mg tablet 600 mg PO TID PRN (Reason: pain) Qty: 30 RF: 0 acetaminophen 500 mg capsule 500 mg PO Q4H PRN (Reason: pain) Qty: 30 RF: 0 hydrocodone-acetaminophen 5-325 mg tablet 1 tab PO Q8H PRN PRN (Reason: pain) Qty: 5 RF: 0 Continued Viibryd 10 mg tablet 20 mg PO DAILY RF: 0 risperidone [Risperdal] 1 mg tablet 1.5 mg PO QHS RF: 0 norethindrone ac-eth estradiol [Aurovela 1.5 (21)] 1.5-30 mg-mcg tablet 1 tab PO DAILY Qty: 105 RF: 3 diphenhydramine HCl [Benadryl] 25 mg capsule 25 mg PO QHS PRN (Reason: sleep) RF: 0 Discontinued acetaminophen [Tylenol Extra Strength] 500 mg tablet 500 mg PO Q6H PRNRF: 0 Discharge Instructions Stand Alone Forms: Aia Han Tunnel Release Activity:: Activity as Tolerated Remove Dressings/Wound Care:: 48 hours Shower/Bathe:: 48 hours Diet:: As Tolerated Discharge Orders Discharge Orders: Discharge Order (Routine); Ordered 01/02/20 Ordered By: Lucien Don DS: Diagnosis Discharge Diagnosis (1) Left carpal tunnel syndrome: Status: Acute Documented by User: Lex Hunter MD 01/02/20 11:01 Discharge Plan Disposition Patient Disposition: HOME Condition: Good Discharge Details Reason For Visit: Left ECTR Attending Provider: Lex Hunter Primary Care Provider: Glenis Borja Home Meds and New Rx's Prescriptions: New ibuprofen 600 mg tablet 600 mg PO TID PRN (Reason: pain) Qty: 30 RF: 0 acetaminophen 500 mg capsule 500 mg PO Q4H PRN (Reason: pain) Qty: 30 RF: 0 hydrocodone-acetaminophen 5-325 mg tablet 1 tab PO Q8H PRN PRN (Reason: pain) Qty: 5 RF: 0 Continued Viibryd 10 mg tablet 20 mg PO DAILY RF: 0 risperidone [Risperdal] 1 mg tablet 1.5 mg PO QHS RF: 0 norethindrone ac-eth estradiol [Aurovela .10/13 ()] 1.5-30 mg-mcg tablet 1 tab PO DAILY Qty: 105 RF: 3 diphenhydramine HCl [Benadryl] 25 mg capsule 25 mg PO QHS PRN (Reason: sleep) RF: 0 Discontinued acetaminophen [Tylenol Extra Strength] 500 mg tablet 500 mg PO Q6H PRNRF: 0 Discharge Instructions Stand Alone Forms: Dale Short Tunnel Release Activity:: Activity as Tolerated Remove Dressings/Wound Care:: 48 hours Shower/Bathe:: 48 hours Diet:: As Tolerated Discharge Orders Discharge Orders: Discharge Order (Routine); Ordered 01/02/20 Ordered By: Lucien Don
--- NOTE | 2020-01-02 11:47 | W.PM.OP ---
Date of service: 01/02/20 Time of Service: 11:47 Operative Note Operative Note DATE OF PROCEDURE: 01/02/20 PRE-OP DIAGNOSIS: Left Carpal Tunnel Syndrome POST-OP DIAGNOSIS: same PROCEDURE: Left Endoscopic Carpal Tunnel Release SURGEON: Lex Hunter ANESTHESIA: GETPilo ESTIMATED BLOOD LOSS: 0 PATHOLOGY: none sent TOURNIQUET TIME: 6 COMPLICATIONS: None Patient was transported to: same day Patient's condition: stable Indications: I have seen Pavel in clinic for symptoms of carpal tunnel syndrome. The numbness, tingling, and pain limited function. Clinical exam findings confirmed the diagnosis of carpal tunnel syndrome. Nonoperative measures such as bracing, time, activity modifications had been tried but disability and pain persisted. I discussed carpal tunnel release with the patient. I reviewed the risks of the procedure to include, but not limited to, bleeding, infection, pain, stiffness, incomplete release, damage to nerves or vessels, persistent numbness, recurrence. Despite these risks, the patient elected to proceed. Findings: There was tightened carpal tunnel. This was dilated and released successfully with the endoscopic with increased space within the tunnel. The antebrachial fascia was released proximally freeing the median nerve at the wrist. Procedure Description: Pavel was greeted in the preoperative holding area where the correct side was identified and marked. The consent was reviewed with the patient and signed. The history and physical was updated. All questions were answered. She was taken back to the operating room. The patient was placed into the supine position on the operating room table with the left arm on an arm board. A nonsterile tourniquet was placed high onto the arm. All bony prominences were well padded. Prophylactic antibiotics in the form of Cefazolin were administered. The left arm was then prepped with Chloraprep and draped in a standard fashion with stockinette and extremity drape. A timeout to confirm correct identity, side and site, procedure, allergies, anesthesia, and medical concerns was performed. The surgical site was marked in the volar wrist creases in line with the radial border of the fourth ray. This area was anesthetized with approximately 6cc of 1% Lidocaine. The limb was then exsanguinated with an Esmarch. The skin was incised with a 15 blade, approximately 1cm. The skin only was cut and the deeper tissue was dissected bluntly with a tenotomy scissor, avoiding passing nerve and venous structures. The fascia was penetrated and opened bluntly. A two-prong skin hook was placed under this proximal fascial edge. A series of hamate finders were used to identify and dilate the carpal tunnel. Synovial elevator was used to free synovial attachments to the underside of the transverse carpal ligament. My thumb was kept in the palm to teri the distal extent of the carpal tunnel and correctly position the hand. The [employer] endoscope was inserted without difficulty and without resistance. Excellent visualization showed horizontally running fibers of the transverse carpal ligament (TCL). The distal extent of the TCL was visualized and the end of the scope palpated with the thumb. The blade was elevated and withdrawn from distal to proximal. The TCL was split into two flaps. The endoscope was reinserted to confirm complete release and any remnant ligament was incised. The scope was withdrawn and the proximal aspect of the carpal tunnel was grossly inspected and appeared release with the median nerve visible. The antebrachial fascia at the level of the wrist was then freed from the overlying skin and then the underlying median nerve with blunt dissection. This was transected longitudinally for about 3cm proximal to the wrist incision. The wound was then irrigated with easy flow of irrigant distally and proximally. The incision was closed with a single 4-0 Nylon suture. The wound was dressed with Xeroform, Gauze, Kerlix and Cristian. The tourniquet was deflated with the initial dressing and held with some pressure. Blood flow returned easily to all digits with capillary refill less than 2 seconds. The patient tolerated the procedure well and was returned to the Same Day Surgery area in a stable condition suffering no known complication.
[2020-01-02] MEDS: Sodium Bicarbonate 50 MEQ/50 ML VIAL (11:54)
[2020-01-02 12:00] VITALS: BP 123/64; PULSE 76; RESP 18; TEMP 36.4; O2SAT 98
== END 2020-01-02 12:20 | disposition home or self-care (01) ==
PROVIDERS: PCP Nurse Practitioner; Visit Provider Student in an Organized Health Care Education/Training Program
PROC: 01N54ZZ Release Median Nerve, Percutaneous Endoscopic Approach (ICD-10-PCS; CPT 29848; principal; 2020-01-02 11:15)
DX: G56.02 Carpal tunnel syndrome, left upper limb (principal)
CPT/HCPCS: 29848; 81025; NC; J1100; J1885; J2001; J2405; J2704; L3650

== ENCOUNTER 2020-01-18 09:32 | Outpatient (CLI) | payer MEDICAID, SELFPAY ==
[2020-01-18 10:23] LABS: HCG Quant, Pregnancy < 1 mIU/mL (1-3)
== END 2020-01-18 09:52 ==
PROVIDERS: PCP Nurse Practitioner; Visit Provider Obstetrics & Gynecology Gynecology
DX: N91.2 Amenorrhea, unspecified (principal)
CPT/HCPCS: 36415; 84702

== ENCOUNTER 2020-03-04 14:08 | Emergency (ER) | payer MEDICAID, SELFPAY ==
[2020-03-04 14:12] VITALS: BP 108/61; PULSE 66; RESP 18; TEMP 36.7; O2SAT 98
--- NOTE | 2020-03-04 14:17 | ED.GENADUL_ITS ---
Discharge Plan Disposition Patient Disposition: HOME Condition: Stable Discharge Details Clinical Impression: Ankle injury Primary Care Provider: Glenis Borja ED Provider: Judy Jeter Home Meds and New Rx's Prescriptions: Continued Viibryd 10 mg tablet 30 mg PO DAILY RF: 0 risperidone [Risperdal] 1 mg tablet 2 mg PO QHS RF: 0 diphenhydramine HCl [Benadryl] 25 mg capsule 25 mg PO QHS PRN (Reason: sleep) RF: 0 ibuprofen 600 mg tablet 600 mg PO TID PRN (Reason: pain) Qty: 30 RF: 0 acetaminophen 500 mg capsule 500 mg PO Q4H PRN (Reason: pain) Qty: 30 RF: 0 No Action nitrofurantoin macrocrystal 25 mg capsule 50 mg PO Q12H Qty: 6 RF: 0 levonorgestrel-ethinyl estrad [Afirmelle] 0.1-20 mg-mcg tablet 1 tab PO DAILY Qty: 84 RF: 5 Discharge Instructions Instructions: Ankle Sprain (ED), Crutch Instructions (ED) Additional Instructions: Please return immediately to the emergency department if you develop any new or worsening symptoms, if your condition does not improve as expected, or if you become otherwise concerned. It is extremely important that you call soon as possible to make an appointment to be seen in follow-up for this visit by your primary care doctor. Referrals: Glenis Borja [Primary Care Provider] - Discharge Data Discharge Date/Time-TO BE ENTERED AT DEPARTURE: 03/04/20 15:43 Medical Decision Making Pavel Núñez is a 24-year-old woman who presents to the emergency department with left ankle and foot pain after stepping onto the ground of her house and rolling her ankle. On exam patient is well nontoxic appearing. Diffuse tenderness to palpation of the left ankle including bony tenderness of the lateral malleolus and left lateral foot. There is edema of the left lateral ankle. DP pulses intact, left foot neurovascularly intact. Concern for fracture versus sprain. Plan for x-ray left ankle, left foot. Exam/history at this time is not consistent with major neurovascular injury, Maisonneuve fracture, other acute emergent medical pathology. X-ray negative. Plan for ankle brace, crutches. I had a lengthy discussion with Patient regarding return to emergency department precautions, home care, and importance of outpatient follow-up. Pt verbalizes understanding of the plan and is amenable. Patient discharged to home with clear plan for outpatient follow-up. All questions were answered. Disposition decision was made weighing the risks and benefits of hospitalization versus outpatient treatment, the risk for further decompensation, and the patient's wishes. Medical Records Medical records reviewed: Yes I reviewed the patient's medical records. Imaging Data Radiologic Study: Attestation: I personally reviewed and interpreted this imaging study as follows: Radiologist's impression: EXAM: XR ANKLE LT COMPLETE INDICATION: trauma, lateral malleolus pain. COMPARISON: CR LEFT ANKLE COMPLETE from 02/27/2015 TECHNIQUE: 2D digital imaging was performed. FINDINGS: There is soft tissue swelling around the lateral malleolus. No acute fracture i s seen. The ankle mortise appears intact. There is spurring from the medial malleolus and mild spurring from the tibial talar joint. Small heel spurs are seen. IMPRESSION: Mild degenerative changes. EXAM: XR FOOT LT COMPLETE CLINICAL HISTORY: trauma, pain lateral foot. TECHNIQUE: 2D digital imaging was performed. COMPARISON: CR LEFT FOOT COMPLETE from 06/22/2017 FINDINGS: BONES: No acute fracture is present. No bony destructive lesion is seen. There is minimal spurring at the Achilles insertion on the calcaneus. There are minimal degenerative changes at the talonavicular and calcaneal cuboid joints. JOINTS: No dislocation present. SOFT TISSUE: Normal. IMPRESSION: Minimal degenerative changes. HPI General Mode of arrival: ambulatory . Date/Time Provider Initiated Documentation: 03/04/20 14:17 . Limitations to Documentation: no limitations . Information obtained by: patient, RN notes reviewed and old records reviewed . HPI Narrative: Pavel Correa is a 24-year-old woman without reported history of major medical problems presenting to the emergency department with left ankle pain. Patient reports that she was walking out of her house when she stepped weird onto the ground and twisted her left ankle. Patient reports that she heard a pop as well. Patient states that she did not fall to the ground, she denies any other injury. She denies any preceding symptoms. Patient reports pain in the lateral aspect of her ankle and also on the lateral aspect of her foot. Denies any other pain. States that her foot feels tingly. Related Data Home Medications Medication Instructions Recorded Confirmed diphenhydramine HCl 25 mg capsule 25 mg PO QHS PRN 01/03/19 03/06/20 risperidone 1 mg tablet 2 mg PO QHS tab 12/01/19 03/06/20 vilazodone 10 mg tablet 30 mg PO DAILY 12/01/19 03/06/20 acetaminophen 500 mg PO Q4H PRN #30 cap 01/02/20 03/06/20 ibuprofen 600 mg PO TID PRN #30 tab 01/02/20 03/06/20 levonorgestrel-ethinyl estradiol 1 tab PO DAILY #84 tab 03/06/20 03/06/20 0.1 mg-20 mcg tablet nitrofurantoin macrocrystal 25 mg 50 mg PO Q12H #6 cap 03/06/20 03/06/20 capsule Previous Rx's Medication Instructions Recorded acetaminophen 500 mg PO Q4H PRN #30 cap 01/02/20 ibuprofen 600 mg PO TID PRN #30 tab 01/02/20 levonorgestrel-ethinyl estradiol 1 tab PO DAILY #84 tab 03/06/20 0.1 mg-20 mcg tablet nitrofurantoin macrocrystal 25 mg 50 mg PO Q12H #6 cap 03/06/20 capsule Allergies Allergy/AdvReac Type Severity Reaction Status Date / Time cefaclor Allergy Unknown Verified 03/04/20 14:17 Cephalosporins Allergy Unknown Verified 03/04/20 14:17 fluoxetine [From Prozac] AdvReac Severe Psychosis Verified 03/04/20 14:17 sertraline [From Zoloft] AdvReac Severe suicidal, Verified 03/04/20 14:17 homasidal lamotrigine AdvReac Intermediate blisters Verified 03/04/20 14:17 on throat and tongue amphetamine sulfate AdvReac Tachycardia Verified 03/04/20 14:17 [From Adderall] atomoxetine HCl AdvReac Tachycardia Verified 03/04/20 14:17 [From Strattera] dextroamphetamine AdvReac Tachycardia Verified 03/04/20 14:17 [From Adderall] hydromorphone AdvReac Verified 03/04/20 14:17 permethrin AdvReac Skin Rash Verified 03/04/20 14:17 [From RID Complete [place] Kit] piperonyl butoxide AdvReac Skin Rash Verified 03/04/20 14:17 [From RID Complete [place] Kit] pyrethrins AdvReac Skin Rash Verified 03/04/20 14:17 [From RID Complete [place] Kit] General Stated Complaint: Orthopedic SHARRI: 4 Review of Systems Narrative: Constitutional: denies fevers Eyes: denies eye pain ENT: denies ear pain, dental pain, sore throat Cardiovascular: denies chest pain Respiratory: denies SOB, cough GI: denies abdominal pain, vomiting, diarrhea : denies flank pain MSK: denies back pain, neck pain, left leg ankle pain, left foot pain, no other arthralgias Skin: denies rash Neuro: denies headaches, weakness, reports left foot tingling PFSH Medical History (Updated 03/10/20 @ 17:57 by Digna Jolley MD) Contraception 08/17/19.Pt's spouse s/p vasectomy. POPs while and until azospermia confirmed. Major depressive disorder, recurrent, unspecified Microcytic anemia Oligomenorrhea Surgical History (Updated 01/12/20 @ 09:38 by ADIN Jamison) Left carpal tunnel syndrome S/P ECTR: 01/02/2020 Family History Father Heart disease of h/a 2`to self mismanagement of his cardiac meds. Hodgkin disease Mother Stroke Social History (Updated 03/07/20 @ 21:06 by Digna Jolley MD) Smoking/Tobacco Use Status: Former Tobacco Use Quit Date: 03/17/18 Alcohol Intake: former Year quit: 2018 Drug use: Never Substance use type: does not use Household members: significant other, children and other Details: Teresa Wagner- EV. Christiano-Yasmeen. Current gender identity: female Do you feel safe at home: Yes Do you feel safe in your relationship?: Yes Female Reproductive History Menstrual Age of Menarche: 9 control method: pills History History 6 Para 5 Hx # Term Pregnancies 4 Multiple births 0 Hx # Pregnancies 2 Ectopic pregnancies 0 AB induced 0 Hx Number of Living Children 5 AB spontaneous 1 Past Pregnancies Del. Date GA/Weeks # Outcome Route Wgt Sex Labor Lgth Anesthes ia Location Prov Complic 12/24/12 38 No Successful vaginal 2154.564 g Male [address] paula 04/28/14 40 No Successful vaginal 4053.982 g Male [address] aguirre 01/22/16 42 No Successful vaginal Female [address] guevara @[facility] 03/29/18 31 No Successful vaginal 1360.777 g Male 24 [facility] 07/21/19 38 No Successful vaginal 3628.739 g Female [address] Hernadez Delivery Date: 05/09/12 breech sent to [facility], low platelets, breathing tube. PREM LUNDY Delivery Date: 04/28/14 iol for polyhydramnious. LELONG,ANEA Delivery Date: 01/22/16 none LELONG,ANEA Delivery Date: 03/29/18 pprom sent to [facility], in house x 3 days statred iol on day 4 delivered day 5. PREM LUNDY Delivery Date: 07/21/19 IOL secondary to diabetes. Apgars 5/8. named Yasmeen. Digna Jolley Exam Narrative Exam Narrative: Constitutional: well and [id number], pleasant, conversing normally HENT: head atraumatic/normocephalic/normal inspection, mucous membranes moist Eyes: conjunctiva normal, sclera normal, pupils 3mm b/l Neck: no stridor, normal ROM, trachea midline Resp: normal work of breathing, no respiratory distress Cardio: normal rate, normal rhythm Skin: warm, dry, normal color, no rash Neuro: alert, not altered, grossly non-focal, normal tone Ext: Diffuse tenderness to palpation of the left ankle including bony tenderness of the lateral malleolus and left lateral foot. There is edema of the left lateral ankle. DP pulses intact. No tenderness to palpation of the proximal fibula. Ranging toes without issue. Sensation of the distal foot and toes intact. Brisk cap refill of the toes. Ranging left knee without pain. Psych: normal mood, normal affect, normal behavior Course Vital Signs Vital signs: Vital Signs Temperature 36.7 C 03/04/20 14:12 Pulse 66 03/04/20 14:12 Respiratory Rate 18 03/04/20 14:12 Blood Pressure 108/61 03/04/20 14:12 Pulse Oximetry 98 03/04/20 14:12 Temperature 36.7 C 03/04/20 14:12 Temperature Source Skin 03/04/20 14:12 Pulse 66 03/04/20 14:12 Respiratory Rate 18 03/04/20 14:12 Blood Pressure 108/61 03/04/20 14:12 Blood Pressure Position Sitting 03/04/20 14:12 Pulse Oximetry 98 03/04/20 14:12 Oxygen Delivery Method Room Air 03/04/20 14:12 Oxygen Flow Rate 0 03/04/20 14:12 Pain Level 8 03/04/20 14:12 Comment 03/04/20 14:12
--- NOTE | 2020-03-04 14:30 | DI.RAD_ITS ---
EXAM: XR FOOT LT COMPLETE CLINICAL HISTORY: trauma, pain lateral foot. TECHNIQUE: 2D digital imaging was performed. COMPARISON: CR LEFT FOOT COMPLETE from 06/22/2017 FINDINGS: BONES: No acute fracture is present. No bony destructive lesion is seen. There is minimal spurring at the Achilles insertion on the calcaneus. There are minimal degenerative changes at the talonavicu lar and calcaneal cuboid joints. JOINTS: No dislocation present. SOFT TISSUE: Normal. IMPRESSION: Minimal degenerative changes. DATA REPOSITORY: RADIATION DOSE DELIVERED:
--- NOTE | 2020-03-04 14:30 | DI.RAD_ITS ---
EXAM: XR ANKLE LT COMPLETE INDICATION: trauma, lateral malleolus pain. COMPARISON: CR LEFT ANKLE COMPLETE from 02/27/2015 TECHNIQUE: 2D digital imaging was performed. FINDINGS: There is soft tissue swelling around the lateral malleolus. No acute fracture is seen. The ankle mo rtise appears intact. There is spurring from the medial malleolus and mild spurring from the tibial talar joint. Small heel spurs are seen. IMPRESSION: Mild degenerative changes. DATA REPOSITORY: RADIATION DOSE DELIVERED:
[2020-03-04] MEDS: Ibuprofen 600 MG TAB PO (15:26)
== END 2020-03-04 15:43 | disposition home or self-care (01) ==
PROVIDERS: Emergency Provider Student in an Organized Health Care Education/Training Program; PCP Nurse Practitioner
DX: S93.492A Sprain of other ligament of left ankle, initial encounter (principal); X50.9XXA Other and unspecified overexertion or strenuous movements or postures, initial encounter
CPT/HCPCS: 29515; 99284; 73610; 73630; 99283; L1902

== ENCOUNTER 2020-03-06 12:51 | Outpatient (REF) | payer MEDICAID, SELFPAY | END 2020-03-06 13:11 | LOC: LBN 12:51 | PROVIDERS: PCP Nurse Practitioner; Visit Provider Obstetrics & Gynecology Gynecology | DX: R30.0 Dysuria (principal) | CPT/HCPCS: 87077; 87086; 87186 ==

== ENCOUNTER 2020-03-13 21:59 | Outpatient (REF) | payer MEDICAID, SELFPAY ==
[2020-03-18 12:08] LABS: Chlamydia Result Negative (Negative); GC Result Negative (Negative)
== END 2020-03-13 22:19 ==
LOC: LBN 21:59
PROVIDERS: PCP Nurse Practitioner; Visit Provider Nurse Practitioner Women's Health
DX: Z11.3 Encounter for screening for infections with a predominantly sexual mode of transmission (principal)
CPT/HCPCS: 87491; 87591

== ENCOUNTER 2020-05-22 23:07 | Outpatient (REF) | payer MEDICAID, SELFPAY ==
[2020-05-24 14:40] LABS: COVID-19 RT-PCR UVMMC Result Negative (Negative)
== END 2020-05-22 23:27 ==
LOC: NCHCN 23:07
PROVIDERS: PCP Nurse Practitioner; Visit Provider Physician Assistant
DX: Z20.828 Contact with and (suspected) exposure to other viral communicable diseases (principal)
CPT/HCPCS: U0003

== ENCOUNTER 2020-05-30 13:59 | Outpatient (REF) | payer MEDICAID, SELFPAY ==
[2020-06-03 14:11] LABS: Chlamydia Result Negative (Negative); GC Result Negative (Negative)
== END 2020-05-30 14:19 ==
LOC: NCHCN 13:59
PROVIDERS: PCP Nurse Practitioner; Visit Provider Nurse Practitioner Family
DX: Z11.3 Encounter for screening for infections with a predominantly sexual mode of transmission (principal)
CPT/HCPCS: 87491; 87591

== ENCOUNTER 2020-07-08 17:29 | Outpatient (REF) | payer MEDICAID, SELFPAY ==
[2020-07-11 07:49] LABS: Chlamydia Result Negative (Negative); GC Result Negative (Negative)
== END 2020-07-08 17:30 | disposition home or self-care (01) ==
LOC: LBN 17:29
PROVIDERS: PCP Nurse Practitioner; Visit Provider Nurse Practitioner Women's Health
DX: Z11.3 Encounter for screening for infections with a predominantly sexual mode of transmission (principal)
CPT/HCPCS: 87491; 87591

== ENCOUNTER 2020-07-09 07:10 | Outpatient (CLI) | payer MEDICAID, SELFPAY ==
[2020-07-09 12:57] LABS: Abs Immature Grans 0.05 10^3/uL (0.0-0.06); Absolute Basophil Count 0.02 10^3/uL (0.0-0.2); Absolute Eosinophil Count 0.08 10^3/uL (0.0-0.7); Absolute Lymphocyte Count 2.79 10^3/uL (1.2-3.4); Absolute Monocyte Count 0.64 10^3/uL (0.1-0.8); Absolute Neutrophil Count 5.94 10^3/uL (1.2-6.7); Basophils % 0.2; Eosinophils % 0.8; HCT 39.2 % (36.0-46.0); HGB 12.4 g/dL (11.2-15.7); Immature Grans % 0.5; Lymphocytes % 29.3; MCH 24.1 pg (27.0-33.0); MCHC 31.6 % (32.0-36.0); MCV 76.1 fL (80-95); MPV 9.7 fL (8.0-11.0); Monocytes % 6.7; Neutrophils % 62.5; Nucleated RBC 0 %; Platelet Count 298 10^3/uL (130-400); RBC 5.15 10^6/uL (3.93-5.22); RDW 13.3 % (11.7-14.6); RDW-SD 36.9 fL; WBC 9.52 10^3/uL (4.4-10.8)
[2020-07-09 14:06] LABS: Total Iron Binding Capacity 430 ug/dL (250-450)
[2020-07-09 14:22] LABS: Ferritin 18 ng/mL (8-252); Folate 8.1 ng/mL (8.6-20.0)
[2020-07-10 10:54] LABS: HIV-1/2 Ag & Ab Screen Negative (Negative)
[2020-07-10 11:01] LABS: Hepatitis C Ab w Rflx HCV PCR Negative (Negative)
[2020-07-11 14:25] LABS: Syphilis Total Ab w/Reflex Nonreactive (Nonreactive)
== END 2020-07-09 07:11 | disposition home or self-care (01) ==
PROVIDERS: Obstetrics & Gynecology Gynecology; PCP Nurse Practitioner; Visit Provider Nurse Practitioner Women's Health
DX: D50.9 Iron deficiency anemia, unspecified (principal); Z11.3 Encounter for screening for infections with a predominantly sexual mode of transmission; Z11.4 Encounter for screening for human immunodeficiency virus [HIV]; Z11.59 Encounter for screening for other viral diseases
CPT/HCPCS: 36415; 86803; 87389; 82728; 82746; 83550; 85025; 86780

== ENCOUNTER 2020-10-29 11:50 | Emergency (ER) | payer MEDICAID, SELFPAY ==
[2020-10-29] VITALS (78 sets, daily range): BP systolic 117–148; BP diastolic 56–90; PULSE 75–109; RESP 12–22; TEMP 36.8; O2SAT 95–100
--- NOTE | 2020-10-29 11:45 | RT.EKG_ITS ---
APPROVED REPORT Exam: Resting ECG Reason for Exam: overdose Patient Location: E HR:104 bpm ECG Measurements Heart Rate 104 AXIS VA 145 P 49 QRSd 83 QRS 70 QT 326 T -61 QTc 430 Conclusion Sinus tachycardia...rate> 99
[2020-10-29] MEDS: Normal Saline 1,000 ML 1000 ML IV (12:15)
[2020-10-29 12:16] LABS: Abs Immature Grans 0.05 10^3/uL (0.0-0.06); Absolute Basophil Count 0.05 10^3/uL (0.0-0.2); Absolute Eosinophil Count 0.04 10^3/uL (0.0-0.7); Absolute Lymphocyte Count 1.64 10^3/uL (1.2-3.4); Absolute Monocyte Count 0.76 10^3/uL (0.1-0.8); Absolute Neutrophil Count 6.26 10^3/uL (1.2-6.7); Basophils % 0.6; Eosinophils % 0.5; HCT 42.7 % (36.0-46.0); HGB 13.5 g/dL (11.2-15.7); Immature Grans % 0.6; Lymphocytes % 18.6; MCH 24.1 pg (27.0-33.0); MCHC 31.6 % (32.0-36.0); MCV 76.1 fL (80-95); MPV 9.9 fL (8.0-11.0); Monocytes % 8.6; Neutrophils % 71.1; Nucleated RBC 0 %; Platelet Count 293 10^3/uL (130-400); RBC 5.61 10^6/uL (3.93-5.22); RDW 13.7 % (11.7-14.6); RDW-SD 37.8 fL
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
[2020-10-29 12:37] LABS: ALT 39 U/L (14-59); AST 29 U/L (15-37); Albumin 3.8 g/dL (3.4-5.0); Alkaline Phosphatase 112 U/L (46-116); Anion Gap 10.6 mmol/L (3-11); BUN 6 mg/dL (7-18); Bilirubin, Total 0.3 mg/dL (0.2-1.0); CO2 24.4 mmol/L (21.0-32.0); CREATININE 0.9 mg/dL (0.55-1.02); Calcium 9.2 mg/dL (8.5-10.1); Chloride 103 mmol/L (98-107); Glucose 147 mg/dL (74-106); Magnesium 2.1 mg/dL (1.8-2.4); Potassium 3.6 mmol/L (3.5-5.1); Sodium 138 mmol/L (136-145); TSH (W/Ref FT4) 1.33 uIU/mL (0.36-3.74); Total Protein 8.2 g/dL (6.4-8.2)
[2020-10-29 12:37] LABS: Source Nasal/Nares
[2020-10-29 12:44] LABS: Salicylate < 2.8 mg/dL (<2.8)
[2020-10-29 12:46] LABS: Acetaminophen < 2 ug/mL (10-30)
[2020-10-29 12:50] LABS: ETHANOL BLOOD < 3.0 mg/dL (<3)
[2020-10-29 13:03] LABS: *AMPHETAMINES SCREEN URINE Negative (Negative); *BARBITURATES SCREEN URINE Negative (Negative); *BENZODIAZEPINES SCREEN URINE Negative (Negative); Cannabinoids THC Negative (Negative); Cocaine Screen,Urine Negative (Negative); METHADONE URINE SCREEN Negative (Negative); OPIATES URINE SCREEN Negative (Negative)
[2020-10-29 13:04] LABS: Tricyclic Antidepressants Negative (Negative)
--- NOTE | 2020-10-29 13:13 | CMSP_ITS ---
- If Service Date Differs Date of service: 10/29/20 Time of Service: 13:13 Care Management Safety Plan Status: Interim - Reason for Wait Reason for Wait: Assessment/Screening, Medical Clearance, Other (Discharging to a friend's home on a safety plan.) Chief Complaint: Pavel is a 24 year old female who presents in the ED after reportedly taking an overdose of medication. She is assessed by Michelle [facility] crisis screener. Pavel is able to enter into a safety plan, so she is being discharged to a friend's home. She will do twice daily check-in phone calls with [facility] Emergency Services and will attend her appointment with Jennifer Marcos, psychiatric nurse, tomorrow as scheduled. Please see Michelle Parker's note for further details of the safety plan. Pavel is to remain at [facility] until she is medically cleared, then be discharged to her friend's home. CM will respond to ED to assess patient after patient has been medically cleared and assessed by screener. If screener deems patient meets criteria for psychiatric stabilization CM will facilitate interdepartmental huddle with [facility] screener for safety planning considerations and meet with patient to review [facility] policy and safety plan, establish individual wishes for treatment and maintain patient rights. In the interim; please note safety plan below to guide patient care while awaiting further assessment in the ED. SAFETY PLAN: 1. Will remain on suicide precautions and in paper clothes. 2. Will remain in room under direct supervision of one-on-one staff at all times provided by [employer], VEHICLE INSPECTOR, TEST DEVELOPER company laundry worker. 3. May have paper cups, plates, finger foods as well as a cardboard spoon with which to eat meals. 4. Follow [facility] Management of the Admitted Behavioral Health Patient policy. 5. Personal care: Comfort bath system only at this time. 6. Bathroom privileges: with escort in ED. Available in room without limitation on Med/Surg. 6. No personal belongings at this time; per RN discretion. 7. No visitors at this time. 8. Phone contact limited to legal contact at this time. 9. Activities: Music tablet per RN discretion. Med/Surg: Television and remote available at RN discretion. 10. Due to VOLUNTARY status, if patient wishes to leave [facility], staff will contact [facility] Crisis Screener ([phone]) and On-Call Retrieval Specialist ([phone]) as soon as possible. In the event of elopement, notify [facility] Police ([phone]). If deemed appropriate for inpatient psychiatric care, safety plan will be established with patient, and care team, to adhere to patient goals, identify restrictions based on behavioral status, address nutrition, and determine allowed personal belongings, tools for hygiene and personal care. As well plan will determine level of activity including ambulation, level of supervision, visitors, and determine privileges based on level of acuity, behaviors and level of engagement by patient.
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
[2020-10-29 17:11] LABS: Acetaminophen < 2 ug/mL (10-30)
[2020-10-29 17:47] LABS: COVID-19 PCR Negative (Negative)
== END 2020-10-29 19:15 | disposition home or self-care (01) ==
PROVIDERS: Student in an Organized Health Care Education/Training Program; Emergency Provider Physician Assistant; PCP Physician Assistant
DX: T43.222A Poisoning by selective serotonin reuptake inhibitors, intentional self-harm, initial encounter (principal); F32.9 Major depressive disorder, single episode, unspecified; F41.9 Anxiety disorder, unspecified
CPT/HCPCS: 36415; 80053; 80307; 81025; 87635; 93005; 96360; 99285; 80320; 80329; 83735; 84443; 85025; 93010; 99284

== ENCOUNTER 2021-02-12 15:43 | Outpatient (REF) | payer MEDICAID, SELFPAY | END 2021-02-12 15:44 | disposition home or self-care (01) | LOC: LBN 15:43 | PROVIDERS: PCP Physician Assistant; Visit Provider Physician Assistant Medical | DX: N39.0 Urinary tract infection, site not specified (principal) | CPT/HCPCS: 87086 ==

== ENCOUNTER 2021-03-22 00:26 | Emergency (ER) | payer MEDICAID, SELFPAY ==
[2021-03-22 00:31] VITALS: BP 148/84; PULSE 110; RESP 18; TEMP 36.4; O2SAT 96
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
[2021-03-22 01:02] LABS: Bacteria Few HPF (Negative); C & S Indicated? Yes; Casts Negative LPF (Negative); Crystals Negative HPF (Negative); Epithelial Cells Rare HPF (Negative); Mucus Negative (Negative)
[2021-03-22] MEDS: Phenazopyridine 100 MG TAB PO (01:42)
[2021-03-22] MEDS: Phenazopyridine 100 MG TAB, 2 TABS/BTL PO (01:42)
[2021-03-22] MEDS: Fosfomycin Tromethamine 3 GM PACKET PO (01:46)
== END 2021-03-22 01:57 | disposition home or self-care (01) ==
PROVIDERS: Emergency Provider Emergency Medicine
DX: N39.0 Urinary tract infection, site not specified (principal)
CPT/HCPCS: 81025; 99283; 81003; 81015; 87086; J3490

== ENCOUNTER 2021-04-24 14:02 | Outpatient (REF) | payer MEDICAID, SELFPAY ==
--- NOTE | 2021-04-24 14:00 | PAPFT_PTH ---
PATIENT: Pavel Núñez LOC: [facility] U#:[id number] AGE/SX: 25/F ROOM: RE04/24/[address]: EDWIN Tavares : 1995 BED: DIS: 04/24/2021 SPEC #: [id number] RECD: 04/24/21 17:46 STATUS: JAE REQ #: [id number] CRIS: 04/24/21 14:[address]: Stefani Mireles DEPT: [facility] Cytology RECD BY: Sandra Woods ENTERED: 04/24/21 17:46 SP TYPE: PAPFT OTHR DR: Unknown,Unknown Tissues: 1 - CX/ENDOCX FOR PAP SMEARS Procedures: PAP THIN PREP/UVM Screening Comments: [id number]
[2021-04-27 16:07] LABS: Chlamydia Result Negative (Negative); GC Result Negative (Negative)
== END 2021-04-24 14:03 | disposition home or self-care (01) ==
LOC: LBN 14:02
PROVIDERS: Visit Provider Nurse Practitioner Family
DX: Z11.3 Encounter for screening for infections with a predominantly sexual mode of transmission (principal); Z12.4 Encounter for screening for malignant neoplasm of cervix
CPT/HCPCS: 87491; 87591; 88142

== ENCOUNTER 2021-10-08 18:33 | Emergency (ER) | payer MEDICAID, SELFPAY ==
[2021-10-08 18:39] VITALS: BP 143/91; PULSE 114; RESP 16; TEMP 36.6; O2SAT 98
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
[2021-10-08 19:19] LABS: Abs Immature Grans 0.11 10^3/uL (0.0-0.06); Absolute Lymphocyte Count 2.69 10^3/uL (1.2-3.4); Basophils % 0.3; Eosinophils % 1.2; HCT 39.9 % (36.0-46.0); HGB 12.9 g/dL (11.2-15.7); Immature Grans % 0.8; Lymphocytes % 18.6; MCH 24.2 pg (27.0-33.0); MCHC 32.3 % (32.0-36.0); MCV 75 fL (80-95); MPV 8.9 fL (8.0-11.0); Monocytes % 6.8; Neutrophils % 72.3; Platelet Count 331 10^3/uL (130-400); RBC 5.32 10^6/uL (3.93-5.22); RDW 14.4 % (11.7-14.6); RDW-SD 38.6 fL; WBC 14.47 10^3/uL (4.4-10.8)
[2021-10-08 19:23] LABS: Absolute Basophil Count 0.04 10^3/uL (0.0-0.2); Absolute Eosinophil Count 0.17 10^3/uL (0.0-0.7); Absolute Monocyte Count 0.98 10^3/uL (0.1-0.8); Absolute Neutrophil Count 10.46 10^3/uL (1.2-6.7)
[2021-10-08 19:38] LABS: ALT 18 U/L (14-59); AST 17 U/L (15-37); Albumin 3.6 g/dL (3.4-5.0); Alkaline Phosphatase 112 U/L (46-116); Anion Gap 11.6 mmol/L (3-11); BUN 5 mg/dL (7-18); Bilirubin, Total 0.2 mg/dL (0.2-1.0); CO2 22.4 mmol/L (21.0-32.0); CREATININE 0.8 mg/dL (0.55-1.02); Calcium 9.2 mg/dL (8.5-10.1); Chloride 104 mmol/L (98-107); Glucose 126 mg/dL (74-106); Potassium 3.6 mmol/L (3.5-5.1); Sodium 138 mmol/L (136-145); Total Protein 7.7 g/dL (6.4-8.2)
[2021-10-08 19:45] LABS: HCG Quant, Pregnancy < 1 mIU/mL (1-3)
[2021-10-08 20:12] VITALS: O2SAT 98
[2021-10-08 20:20] VITALS: O2SAT 97
[2021-10-08 21:39] VITALS: BP 106/68; PULSE 97; RESP 18; TEMP 36.8; O2SAT 100
[2021-10-10 15:18] LABS: Chlamydia Result Negative (Negative); GC Result Negative (Negative)
== END 2021-10-08 21:49 | disposition home or self-care (01) ==
PROVIDERS: Emergency Provider Registered Nurse Emergency
DX: O20.0 Threatened abortion (principal)
CPT/HCPCS: 36415; 80053; 87491; 87591; 99283; 84702; 85025; 87480; 87510; 87660

== ENCOUNTER 2021-10-09 10:18 | Outpatient (REF) | payer MEDICAID, SELFPAY | END 2021-10-09 10:19 | disposition home or self-care (01) | LOC: LBN 10:18 | PROVIDERS: Visit Provider Nurse Practitioner Family | DX: R30.0 Dysuria (principal) | CPT/HCPCS: 87077; 87086; 87186 ==